=== PATIENT | male | born 1945 | race Caucasian/White ===

== ENCOUNTER → 2023-01-01 13:01 | Outpatient (BNVA) | payer MEDICARE, SELFPAY | PROVIDERS: Family Provider Family Medicine; Referring Provider Family Medicine; Visit Provider Dermatology | DX: L82.1 Other seborrheic keratosis (principal); L57.0 Actinic keratosis; L72.0 Epidermal cyst; L81.4 Other melanin hyperpigmentation | CPT/HCPCS: 17000; 17003; 99203 ==

== ENCOUNTER 2024-10-23 10:58 | Outpatient (CLI) | payer MEDICARE, SELFPAY ==
--- NOTE | 2024-10-23 11:08 | USCV_ITS ---
Too Joyner Age: 78 Gender: M : 1945 Exam Date: 10/23/2024 11:52 Ordering Phys: Peewee Dillon MD Technologist: Alexx Mera [place] [facility] [place]: hypotension BP: 110 / 70 HR: 55 Rhythm: Sinus Technical Quality: Adequate MEASUREMENTS (Male / Female) Normal Values 2D ECHO LV Diastolic Diameter PLAX 4.9 cm 4.2 - 5.9 / 3.9 - 5.3 cm IVS Diastolic Thickness 0.9 cm 0.6 - 1.0 / 0.6 - 0.9 cm IVS Systolic Thickness 1.0 cm LVPW Diastolic Thickness 1.5 cm 0.6 - 1.0 / 0.6 - 0.9 cm LVPW Systolic Thickness 2.2 cm LVOT Diameter 2.0 cm LV Ejection Fraction 2D Teich 30.7 % LV Ejection Fraction MOD 4C 47.3 % LV Ejection Fraction MOD 2C 40.1 % LV Ejection Fraction 2C AL 38.9 % LA Diameter 4.0 cm RA Systolic Volume 4C AL 30.6 ml RA Systolic Volume 4C MOD 29.7 ml LA Sys Volume AL 71.6 cm cubed LA Sys Volume Index AL 39.3 cm cubed/m squared Aorta at Sinotubular Diameter 2.2 cm IVC Diameter 1.5 cm M-MODE LA Ao Ratio MM 1.8 AV Cusp Separation MM 1.6 cm DOPPLER AV Peak Velocity 110.7 cm/s LVOT Peak Velocity 65.0 cm/s AV Area Cont Eq vti 2.3 cm squared AV Area Cont Eq pk 1.9 cm squared MV Peak Velocity 90.0 cm/s MV Area PHT 3.1 cm squared Mitral E to A Ratio 0.7 TV Peak Velocity 210.7 cm/s TR Peak Velocity 229.0 cm/s TR Peak Gradient 21.0 mmHg TR Mean Velocity 171.0 cm/s TR Mean Gradient 12.7 mmHg TR Velocity Time Integral 70.6 cm PV Peak Velocity 98.0 cm/s RV Ejection Time 0.3 s FINDINGS Left Ventricle Left ventricle is normal in size. LV systolic function is moderately reduced with EF of 35-40%. Moderate global hypokinesis. Grade 1 diastolic dysfunction Right Ventricle Grossly appears hypokinetic Right Atrium Normal in size Left Atrium Normal in size Mitral Valve Structurally normal mitral valve. Mild mitral regurgitation Aortic Valve Aortic valve is thickened. No significant stenosis or regurgitation Tricuspid Valve Insufficient TR jet to calculate RVSP Pulmonic Valve Mild pulmonic regurgitation. Pericardium Not well visualized Aorta Normal IVC Appears to be normal CONCLUSIONS LV systolic function is moderately reduced with EF of 35-40% RV appears grossly hypokinetic Grade 1 diastolic dysfunction Mild mitral regurgitation Mild pulmonic regurgitation No comparison studies are available. Theo Hauser MD (Electronically Signed) Final Date: 29 Oct 2024 10:37 S
== END 2024-10-23 10:59 | disposition home or self-care (01) ==
LOC: RAD 11:00
PROVIDERS: Family Provider Family Medicine; PCP Family Medicine; Visit Provider Internal Medicine Cardiovascular Disease
DX: E86.1 Hypovolemia (principal); R93.1 Abnormal findings on diagnostic imaging of heart and coronary circulation; I34.0 Nonrheumatic mitral (valve) insufficiency; I35.8 Other nonrheumatic aortic valve disorders; I37.1 Nonrheumatic pulmonary valve insufficiency
CPT/HCPCS: 93306

== ENCOUNTER 2024-12-07 23:07 | Inpatient (IN) | payer MEDICARE, SELFPAY ==
[2024-12-07 23:17] VITALS: BP 167/88; PULSE 95; RESP 16; TEMP 36.6; O2SAT 98; BMI 23.6
--- NOTE | 2024-12-07 23:48 | ECG_ITS ---
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 Measurements Intervals [place] Rate: 95 P: 72 VT: 195 QRS: -45 QRSD: 162 T: 87 QT: 383 QTc: 484 Interpretive Statements SINUS RHYTHM LEFT AXIS DEVIATION [QRS AXIS < -30] LEFT BUNDLE BRANCH BLOCK [120+ ms QRS DURATION, 80+ ms Q/S IN V1/V2, 85+ ms R IN I/aVL/V5/V6] No previous ECG available for comparison Electronically Signed On 12-10-2024 06:21:57 CDT by Marcello Blanco M.D. [email or web address]
--- NOTE | 2024-12-07 23:50 | ED_ITS ---
HPI - Chest Pain 2 General: Chief Complaint: Chest Pain Stated Complaint: Chest Pains Time Seen by Provider: 12/07/24 23:32 History of Present Illness: 79-year-old man with a history of don ry artery disease status post stents still on Plavix, hypertension and diabetes who presents to the emergency room with arm pain. He says he is having bilateral pain from his elbows to his shoulders. He says this is how he has presented with coronary issues in the past. Related Data Allergies Allergy/AdvReac Type Severity Reaction Status Date / Time No Known Allergies Allergy Verified 12/07/24 23:31 Review of Systems 2 Narrative: Constitutional symptoms: Negative except as documented in HPI. Skin symptoms: Negative except as documented in HPI. Eye symptoms: Negative except as documented in HPI. ENMT symptoms: Negative except as documented in HPI. Respiratory symptoms: Negative except as documented in HPI. Cardiovascular symptoms: Negative except as documented in HPI. Gastrointestinal symptoms: Negative except as documented in HPI. Genitourinary symptoms: Negative except as documented in HPI. Musculoskeletal symptoms: Negative except as documented in HPI. Neurologic symptoms: Negative except as documented in HPI. Psychiatric symptoms: Negative except as documented in HPI. Endocrine symptoms: Negative except as documented in HPI. Physical Exam 2 Narrative: EXAM NARRATIVE: General: Alert, no acute distress. Skin: Warm, dry. Head: Normocephalic, atraumatic. Neck: Supple, trachea midline. Eye: Extraocular movements are intact. Ears, nose, mouth and throat: mucosa moist. Cardiovascular: Regular, Normal peripheral perfusion. Respiratory: Lungs are clear to auscultation, respirations are non-labored, breath sounds are equal, Symmetrical chest wall expansion. Gastrointestinal: Soft, Nontender, Non distended Musculoskeletal: Normal ROM, no deformity. Neurological: Alert and oriented, No focal neurological deficit observed. Psychiatric: Cooperative, appropriate mood & affect. Course 2 Vital Signs: Vital signs: Vital Signs Temperature 97.9 F 12/07/24 23:17 Pulse Rate 92 12/08/24 00:25 Respiratory Rate 18 12/08/24 00:25 Blood Pressure 158/93 12/08/24 00:25 Pulse Oximetry 97 12/08/24 00:25 Oxygen Delivery Me thod Room Air 12/08/24 00:25 MDM - Chest Pain Medical Decision Making Differential diagnosis for patient with chest pain includes but is not limited to and based on the above HPI, review of systems and physical exam: Pneumonia. unstable angina. angina. Acute coronary syndrome / AR. Pulmonary embolism. Costochondritis / musculoskeletal. Pleurisy. Pericarditis. Esophageal spasm. Pancreatis. Cholecystitis. Orders placed to evaluate differential diagnosis based on the above differential, HPI and physical exam EKG: Time 194. Rate 89. Normal sinus rhythm, No ST-T changes, PVC, right bundle branch block, This was reviewed and interpreted by myself the ER physician at 1950. Lab Review: Laboratory results were reviewed and interpreted by myself the emergency room physician. No leukocytosis. No anemia. No renal failure. Glucose is elevated at 246. Initial troponin is slightly elevated at 20. proBNP is mildly elevated at 1046. I reviewed the patient's medical record. HEART Pathway for Early Discharge in Acute Chest Pain from [employer] on 12/08/2024 All calculations should be rechecked by clinician prior to use RESULT SUMMARY: 6 points HEART Pathway Score High risk 12-65% 30-day MACE Cardiology consultation and admission recommended. Further testing indicated. INPUTS: History ?> 1 = Moderately suspicious EKG ?> 0 = Normal Age ?> 2 = >=5 Risk factors ?> 2 = >= risk factors or history of atherosclerotic disease Initial troponin ?> 1 = 1-3x normal limit Reexamination: Patient says pain is much improved after nitroglycerin. Patient remained stable. No increased work of breathing. No altered mental status. No focal motor deficits. Consultation: I spoke with Dr. Lorenzo is on-call for the hospitalist service who agrees to admission Assessment and plan: Chest pain Coronary artery disease ?Nitro and aspirin in the emergency room -I discussed the patient with the hospitalist on-call who is admitting the patient. - Discussed findings and plan with patient. Answered any questions. - All laboratory values were reviewed and interpreted personally by myself, the ER physician - All imaging was reviewed and interpreted personally by myself, the ER physician. - Evaluation and treatment of this problem were appropriate in the emergency setting Lab Data 12/07/24 23:55 12/07/24 23:55 Laboratory Results WBC 9.58 10^3/uL (3.29-11.43) 12/07/24 23:55 RBC 5.36 10^6/uL (3.85-5.65) 12/07/24 23:55 Hgb 10.00 g/dL (11.27-16.99) L 12/07/24 23:55 Hct 32.3 % (37-53) L 12/07/24 23:55 MCV 60.3 fl (82-101) L 12/07/24 23:55 MCH 18.7 pg (27-33) L 12/07/24 23:55 MCHC 31.0 g/dL (30-55) 12/07/24 23:55 RDW 16.7 % (12.1-15.1) H 12/07/24 23:55 Plt Count 247 10^3/cmm (157-399) 12/07/24 23:55 MPV 9.4 fL (7.4-10.4) 12/07/24 23:55 Neut % (Auto) 72.1 % 12/07/24 23:55 Lymph % (Auto) 19.4 % 12/07/24 23:55 [place] % (Auto) 6.4 % 12/07/24 23:55 Eos % (Auto) 1.5 % 12/07/24 23:55 Baso % (Auto) 0.3 % 12/07/24 23:55 Neut # (Auto) 6.91 10^3/uL (1.8-7.7) 12/07/24 23:55 Lymph # (Auto) 1.9 10^3/uL (0.8-4.8) 12/07/24 23:55 [place] # (Auto) 0.6 10^3/uL (0.2-0.9) 12/07/24 23:55 Eos # (Auto) 0.1 10^3/uL (0.0-0.8) 12/07/24 23:55 Baso # (Auto) 0.0 10^3/uL (0.0-0.1) 12/07/24 23:55 Nucleated RBC % (auto) 0 % 12/07/24 23:55 Nucleated RBCs # 0.0 /100WBC 12/07/24 23:55 Sodium 139 mmol/L (136-145) 12/07/24 23:55 Potassium 4.1 mmol/L (3.5-5.1) 12/07/24 23:55 Chloride 105 mmol/L (98-107) 12/07/24 23:55 Carbon Dioxide 22 mmol/L (22-29) 12/07/24 23:55 Anion Gap 16.1 (5-19) 12/07/24 23:55 BUN 22 mg/dL (8-23) 12/07/24 23:55 Creatinine 0.8 mg/dL (0.7-1.2) 12/07/24 23:55 GFR Calculation Not Reportable 12/07/24 23:55 Glucose 246 mg/dL (65-115) H 12/07/24 23:55 Calculated Osmolality 300 mOsm/kg (285-295) H 12/07/24 23:55 Calcium 9.4 mg/dL (8.5-10.5) 12/07/24 23:55 Total Bilirubin 0.4 mg/dL (0.15-1.2) 12/07/24 23:55 AST 18 U/L (0-40) 12/07/24 23:55 ALT 13 U/L (0-41) 12/07/24 23:55 Alkaline Phosphatase 82 U/L (40-130) 12/07/24 23:55 Troponin T Baseline 20 ng/L (0-15) H 12/07/24 23:55 NT-Pro-B Natriuret Pep 1046 pg/mL (0-450) H 12/07/24 23:55 Total Protein 7.3 g/dL (6.6-8.7) 12/07/24 23:55 Albumin 4.5 g/dL (3.5-5.2) 12/07/24 23:55 Globulin 2.8 g/dL (1.3-4.6) 12/07/24 23:55 No radiology studies performed this visit Discharge Plan Discharge Patient Disposition: Placed in Observation Clinical Impression: Chest pain, Coronary artery disease Coding Level of Care Code ED Operational Communication Chief for Thanh Bee
[2024-12-08] VITALS (13 sets, daily range): BP systolic 125–158; BP diastolic 66–93; PULSE 73–92; RESP 14–23; TEMP 36.6–37.1; O2SAT 93–99; BMI 23.3
[2024-12-08 00:11] LABS: Basophils % 0.3 %; Eosinophils # 0.1 10^3/uL (0.0-0.8); Eosinophils % 1.5 %; Hematocrit 32.3 % (37-53); Lymphocytes # 1.9 10^3/uL (0.8-4.8); Lymphocytes % 19.4 %; Mean Corpuscular Hemoglobin 18.7 pg (27-33); Mean Corpuscular Volume 60.3 fl (82-101); Mean Platelet Volume 9.4 fL (7.4-10.4); Monocytes # 0.6 10^3/uL (0.2-0.9); Monocytes % 6.4 %; Neutrophils # 6.91 10^3/uL (1.8-7.7); Neutrophils % 72.1 %; Nucleated Red Blood Cells % 0 %; Platelet Count 247 10^3/cmm (157-399); Red Blood Count 5.36 10^6/uL (3.85-5.65); Red Cell Distribution Width 16.7 % (12.1-15.1); White Blood Count 9.58 10^3/uL (3.29-11.43)
[2024-12-08 00:33] LABS: Troponin(5th) Baseline 20 ng/L (0-15)
[2024-12-08 00:41] LABS: Alanine Aminotransferase 13 U/L (0-41); Albumin Level 4.5 g/dL (3.5-5.2); Alkaline Phosphatase 82 U/L (40-130); Anion Gap 16.1 (5-19); Aspartate Amino Transferase 18 U/L (0-40); Blood Urea Nitrogen 22 mg/dL (8-23); Calcium 9.4 mg/dL (8.5-10.5); Carbon Dioxide 22 mmol/L (22-29); Chloride 105 mmol/L (98-107); Creatinine Clr Calc Pharmacy 73.2453; Globulin 2.8 g/dL (1.3-4.6); Glucose 246 mg/dL (65-115); NT Pro B Type Natriuretic Pept 1046 pg/mL (0-450); Osmolality Calculated 300 mOsm/kg (285-295); Potassium 4.1 mmol/L (3.5-5.1); Sodium 139 mmol/L (136-145); Total Protein 7.3 g/dL (6.6-8.7)
[2024-12-08 00:55] LABS: Total Bilirubin 0.4 mg/dL (0.15-1.2)
[2024-12-08] MEDS: aspirin 81 mg Chew Tablet 324 MG PO (00:57)
[2024-12-08] MEDS: nitroglycerin 0.4 mg sublingual Tablet SUBLINGUAL (00:57)
--- NOTE | 2024-12-08 01:13 | XRR_ITS ---
PROCEDURE INFORMATION: Exam: XR Chest Exam date and time: 12/08/2024 1:19 AM Age: 79 years old Clinical indication: Pain; Chest pressure; Additional info: Chest pain TECHNIQUE: Imaging protocol: Radiologic exam of the chest. Views: 1 view. COMPARISON: No relevant prior studies available. FINDINGS: Lungs: Unremarkable. No consolidation. Pleural spaces: Unremarkable. No pleural effusion. No pneumothorax. Heart/Mediastinum: Unremarkable. No cardiomegaly. Bones/joints: Sternotomy. XR/XR chest 1V portable [id number] IMPRESSION: No acute cardiopulmonary process.
--- NOTE | 2024-12-08 01:48 | ECG_ITS ---
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 Measurements Intervals [place] Rate: 74 P: 67 DE: 210 QRS: -36 QRSD: 165 T: 131 QT: 454 QTc: 506 Interpretive Statements SINUS RHYTHM WITH FIRST DEGREE AV BLOCK LEFT AXIS DEVIATION [QRS AXIS < -30] LEFT BUNDLE BRANCH BLOCK [120+ ms QRS DURATION, 80+ ms Q/S IN V1/V2, 85+ ms R IN I/aVL/V5/V6] Compared to ECG 12/07/2024 23:24:55 First degree AV block now present Electronically Signed On 12-10-2024 08:20:53 CDT by Glory Handley M.D. [email or web address] [id number]
[2024-12-08 02:51] LABS: Troponin 5 2HR 105.1 ng/L (0-15); Troponin 5 2HR Delta 85.1 ABS# (0-10)
--- NOTE | 2024-12-08 03:53 | USCV_ITS ---
Too Joyner Age: 79 Gender: M : 1945 Exam Date: 12/08/2024 03:59 Ordering Phys: Chata Lorenzo MD Technologist: RUSSEL Exam Location: [facility] [place] Indication: chest pain, history CAD s/p stents, HTN DM, s/p CABG 2016 BP: 138 / 71 HR: 80 Rhythm: Atrial fibrillation Technical Quality: Adequate MEASUREMENTS (Male / Female) Normal Values 2D ECHO LV Diastolic Diameter PLAX 5.0 cm 4.2 - 5.9 / 3.9 - 5.3 cm IVS Diastolic Thickness 1.1 cm 0.6 - 1.0 / 0.6 - 0.9 cm IVS Systolic Thickness 1.4 cm LVPW Diastolic Thickness 0.9 cm 0.6 - 1.0 / 0.6 - 0.9 cm LVPW Systolic Thickness 1.1 cm LVOT Diameter 2.4 cm LV Ejection Fraction 2D Teich 25.4 % LV Ejection Fraction MOD 4C 29.0 % LV Ejection Fraction MOD 2C 37.8 % LV Ejection Fraction 2C AL 38.2 % LA Diameter 5.0 cm Aorta at Sinotubular Diameter 2.6 cm IVC Diameter 1.9 cm M-MODE LA Ao Ratio MM 1.9 AV Cusp Separation MM 1.5 cm DOPPLER AV Peak Velocity 94.0 cm/s LVOT Peak Velocity 55.0 cm/s AV Area Cont Eq vti 2.9 cm squared AV Area Cont Eq pk 2.7 cm squared MV Peak Velocity 96.0 cm/s MV Area PHT 6.6 cm squared Mitral E to A Ratio 619.0 TR Peak Velocity 320.0 cm/s TR Peak Gradient 41.0 mmHg TV Peak E Velocity 40.0 cm/s PV Peak Velocity 102.0 cm/s FINDINGS Left Ventricle Dyskinetic and thinned out mid and apical septum and other segments anteroseptal segments. Moderate diffuse hypokinesis of the inferolateral wall. Moderate diffuse hypokinesia of the apex.Grade III/IV diastolic dysfunction (restrictive filling pattern), severely elevated filling pressures. LV ejection fraction of 29%. Mildly dilated LV cavity Right Ventricle Appears to be normal size with slightly diminished ejection fraction Right Atrium The right atrium is normal in size. Left Atrium Moderately increased left atrial size. Mitral Valve Mild-moderate mitral valve regurgitation. Aortic Valve Thickened aortic valve. Tricuspid Valve Trace tricuspid valve regurgitation. Estimated pulmonary artery peak systolic pressure 51 mmHg Pulmonic Valve Mild pulmonary valve regurgitation. Pericardium Normal pericardium without effusion. Aorta Normal aortic annulus size. IVC Normal IVC dimension with <50% respiratory change of the inferior vena cava. CONCLUSIONS Multiple wall motion abnormalities with a diminished LV ejection fraction of 29%. Grade III/IV diastolic dysfunction (restrictive filling pattern), severely elevated filling pressures. Mildly dilated LV cavity. Moderately increased left atrial size. Thickened aortic valve. Trace tricuspid valve regurgitation. Estimated pulmonary artery peak systolic pressure 51 mmHg. Mild pulmonary valve regurgitation. There is no pericardial effusion. There are no intracardiac masses. No similar previous studies are available for comparison Dr Marcello Blanco MD FACC (Electronically Signed) Final Date: 08 December 2024 09:39 S
--- NOTE | 2024-12-08 03:57 | PM.HP ---
Providers/Chief Complaint Admitting Physician: Chata Lorenzo MD--seen after midnight Chief Complaint: Chest Pains History of Present Illness Too oJyner is a 79 year old male with medical history significant for coronary artery disease who had had angina equivalent and this was the reason for presentation to the emergency room. Patient have a left upper extremity ache into the shoulder. Patient had taken 2 nitro at home and it did not help. He decided to come to the emergency room for care. Initial troponin was 20. Patient's second troponin which is a 2-hour troponin went up to a 105 with a delta of 85.1. Patient's angina equivalent resolved soon after having received full aspirin in the ED. Patient takes baby aspirin at home.. Patient since arrival to the emergency room had not had any further chest pains. I have at this time started patient on heparin drip with cardiology protocol. Patient is not in distress and doing okay. Did place a call out to the template worker, Dr. Blanco but he went to the voicemail we will keep trying.. Patient at this time is in stable condition and have appropriate orders in place Review of Systems Narrative: Distant review upon 10 organ review with significant for cardiovascular process with chest pain angina equivalent. Otherwise system review where unremarkable Medications/Allergies Home Medications ?Medication ?Instructions ?Recorded ?Confirmed ?Last Taken ?Type aspirin 81 mg chewable tablet 81 mg PO DAILY 12/08/24 12/08/24 Unknown History carvedilol 12.5 mg tablet 12.5 mg PO DAILY 12/08/24 12/08/24 Unknown History carvedilol 6.25 mg tablet 6.25 mg PO BEDTIME 12/08/24 12/08/24 Unknown History clopidogrel 75 mg tablet 75 mg PO DAILY 12/08/24 12/08/24 Unknown History isosorbide mononitrate 30 mg 30 mg PO DAILY 12/08/24 12/08/24 Unknown History tablet,extended release 24 hr metformin 500 mg tablet,extended 500 mg PO BID 12/08/24 12/08/24 Unknown History release 24 hr nitroglycerin 0.4 mg sublingual 0.4 mg sublingual Q5M PRN Chest 12/08/24 12/08/24 Unknown History tablet Pain potassium 99 mg tablet 99 mg PO DAILY 12/08/24 12/08/24 Unknown History ranolazine 500 mg tablet,extended 500 mg PO BID 12/08/24 12/08/24 Unknown History release,12 hr simvastatin 20 mg tablet 20 mg PO DAILY 12/08/24 12/08/24 Unknown History ustekinumab 90 mg/mL subcutaneous See Rx Instructions .Route .COMPLEX 12/08/24 12/08/24 Unknown History syringe (Stelara) valsartan 40 mg tablet 20 mg PO DAILY 12/08/24 12/08/24 Unknown History Allergies Allergy/AdvReac Type Severity Reaction Status Date / Time No Known Allergies Allergy Verified 12/07/24 23:31 Vitals/I&O/Wt Last Vital Signs Temp 97.9 F 12/07/24 23:17 Pulse 75 12/08/24 02:56 Resp 17 12/08/24 02:30 BP 138/71 12/08/24 02:56 Pulse Ox 93 12/08/24 02:56 O2 Del Method Room Air 12/08/24 03:24 Weight last 48 hrs Weight 69.763 kg Weight 70.307 kg Physical Exam Narrative: Generally patient is doing well in no apparent distress. Denies chest pain at this time here in the emergency room. HEENT normocephalic/atraumatic neck neck is supple cardiovascular heart rate is regular lungs are clear abdomen soft nontender nondistended unremarkable extremities intact no edema has good pulses neurology has no focality lab studies lab studies as per below were entirely unremarkable except for troponins. By the status of troponin patient does have NSTEMI. Cardiology consulted is Dr. Blanco. Data 12/07/24 23:55 12/08/24 05:30 A&P Assessment and plan (1) NSTEMI (non-ST elevated myocardial infarction): Patient is on heparin drip and had received full aspirin. Appropriately placed on MedSurg with telemetry Patient kept n.p.o. after midnight for possible cardiac catheterization (2) Chest pain: Chest pain significant for NSTEMI Received full aspirin, heparin drip initiated with cardiology consultation with Dr. Blanco. Patient is in no apparent distress. Denies chest pains since arrival to the emergency room (3) Coronary artery disease: Patient does have CABG due to coronary artery disease patient claimed he had never had [place] or any had tissue damage but had had chest pains with discovery of CAD and underwent CABG PDMP PDMP Reviewed: Not Reviewed Attestations Medical Necessity Statement*: Patient with this level of troponin with angina equivalent chest pain and a history of coronary artery disease with CABG with this have likely cardiac catheterization for this reason patient meets inpatient criteria. Cardiology has been consulted to follow-up with care. Coding Level of Care Code 13703 Diagnoses NSTEMI (non-ST elevated myocardial infarction) I21.4 Chest pain R07.9 Coronary artery disease I25.10 Time Spent (min) 60
[2024-12-08] MEDS: sodium chloride 0.9% 1,000 ML 75 ML IV (05:04)
[2024-12-08 06:05] LABS: Alanine Aminotransferase 15 U/L (0-41); Albumin Level 4.3 g/dL (3.5-5.2); Alkaline Phosphatase 71 U/L (40-130); Anion Gap 14.3 (5-19); Aspartate Amino Transferase 57 U/L (0-40); Blood Urea Nitrogen 21 mg/dL (8-23); Calcium 9.2 mg/dL (8.5-10.5); Carbon Dioxide 23 mmol/L (22-29); Chloride 108 mmol/L (98-107); Chol HDL Ratio 2.94 mg/dL (1.0-5.00); Cholesterol 106 mg/dL (0-200); Creatinine Clr Calc Pharmacy 72.0923; Globulin 2.6 g/dL (1.3-4.6); Glucose 121 mg/dL (65-115); HDL Cholesterol 36 mg/dL (60-100); LDL Cholesterol Calculated 50 mg/dL (50-129); LDL HDL Ratio 1.39 RATIO (0.00-3.22); Osmolality Calculated 296 mOsm/kg (285-295); Phosphorus 2.9 mg/dL (2.5-4.5); Potassium 4.3 mmol/L (3.5-5.1); Sodium 141 mmol/L (136-145); Total Protein 6.9 g/dL (6.6-8.7); Triglycerides 99 mg/dL (0-150)
[2024-12-08] MEDS: heparin 5,000 unit/mL INJ 1 mL IVP (06:15)
[2024-12-08] MEDS: heparin drip 25,000 UNIT/500 ML PREMIX 20 UNIT IV (06:17)
[2024-12-08 06:33] LABS: Troponin 5 6HR 440.7 ng/L (0-15); Troponin 5 6HR Delta 420.7 ng/L (0-12)
--- NOTE | 2024-12-08 08:59 | PM.CONSULT ---
Providers/Reason For Consult Consulting Physician/Specialty*: MARINE Blanco MD/cardiology Reason for Consult*: Patient with chest pain and elevated troponin T Requesting Physician: Dr. Werner Attending Physician: Jamal Werner MD History of Present Illness History of Present Illness Too Joyner is a 79 year old male with a history of atherosclerotic heart disease ,previous coronary bypass surgery and PCI's, is admitted to the hospital through the emergency room where he presented with complaints of prolonged chest pain. He was found to have elevated troponin T with a significant delta. Cardiology consult is requested for further cardiac evaluation and recommendations. This patient has a history of atherosclerotic heart diseas and had a four-vessel coronary bypass surgery in 2017. 3 months later, he apparently had a PCI for? RCA graft occlusion. A year ago, he had another angiogram followed by PCI. The details are not available. Patient had these interventions at the [facility] in [facility]. According the patient, he has been doing okay up until last evening around 8:00 when he started having left arm pain. He had associated shortness of breath and some sweating. The intensity of the pain was 7/10. He took a total of 2 sublingual nitro. Since there was no relief of the symptoms, he decided to come to the hospital. He reached the emergency room around 1030. There he was given more sublingual nitro and aspirin. The symptoms gradually subsided. Altogether, the pain made her lasted for 4 hours or so. This morning, at the time of my examination, patient is pain-free. He came with a baseline troponin T of 20. The 2-hour delta was 85. The 6-hour delta is 420. He has a history of hypertension, diabetes, dyslipidemia and ulcerative colitis. He has history of GI bleed and had multiple hospital admissions for the same in the past. He has been taking the Plavix with no evidence of any active bleed. He also takes baby aspirin at home. Denies any fever, chills or cough. No other specific complaints. He had a MOSLEY to the LAD, venous To the RCA, diagonal and obtuse marginal arteries. Review of Systems Narrative: CONSTITUTIONAL: No fever or chills. EYES: No blurring of vision or other visual disturbances lately. ENT: No hoarseness of voice, auditory disturbances or sore throat. CARDIOVASCULAR: As mentioned above. RESPIRATORY: No significant cough. GASTROINTESTINAL: History of ulcerative colitis GENITOURINARY: No dysuria or hematuria. INTEGUMENTARY: No skin rashes or history of skin cancer. NEURO: No transient ischemic attacks or am aurosis. PSYCHIATRIC: No history of psychosis or major depression. HEMATOLOGIC: No bleeding disorders or significant anemia. ENDOCRINE: history of diabetes MUSCULOSKELETAL: No recent joint pain or swelling. ALLERGY/IMMUNOLOGY: As mentioned above. Medications/Allergies Home Medications ?Medication ?Instructions ?Recorded ?Confirmed ?Last Taken ?Type aspirin 81 mg chewable tablet 81 mg PO DAILY 12/08/24 12/08/24 Unknown History carvedilol 12.5 mg tablet 12.5 mg PO DAILY 12/08/24 12/08/24 Unknown History carvedilol 6.25 mg tablet 6.25 mg PO BEDTIME 12/08/24 12/08/24 Unknown History clopidogrel 75 mg tablet 75 mg PO DAILY 12/08/24 12/08/24 Unknown History isosorbide mononitrate 30 mg 30 mg PO DAILY 12/08/24 12/08/24 Unknown History tablet,extended release 24 hr metformin 500 mg tablet,extended 500 mg PO BID 12/08/24 12/08/24 Unknown History release 24 hr nitroglycerin 0.4 mg sublingual 0.4 mg sublingual Q5M PRN Chest 12/08/24 12/08/24 Unknown History tablet Pain potassium 99 mg tablet 99 mg PO DAILY 12/08/24 12/08/24 Unknown History ranolazine 500 mg tablet,extended 500 mg PO BID 12/08/24 12/08/24 Unknown History release,12 hr simvastatin 20 mg tablet 20 mg PO DAILY 12/08/24 12/08/24 Unknown History ustekinumab 90 mg/mL subcutaneous See Rx Instructions .Route .COMPLEX 12/08/24 12/08/24 Unknown History syringe (Stelara) valsartan 40 mg tablet 20 mg PO DAILY 12/08/24 12/08/24 Unknown History Allergies Allergy/AdvReac Type Severity Reaction Status Date / Time No Known Allergies Allergy Verified 12/07/24 23:31 Current Medications Generic Name Dose Route Start Last Admin Trade Name Freq PRN Reason Stop Dose Admin Sodium Chloride 1,000 mls @ 50 mls/hr 12/08/24 03:45 12/08/24 06:19 Sodium Chloride 0.9% IV 0 mls/hr .Q20H LAVON Infusion Heparin Sodium/Sodium Chloride 25,000 unit in 500 mls @ 0 mls/hr 12/08/24 05:30 12/08/24 06:17 Heparin Drip IV 14.33 unit/kg/hr CONT LAVON 20 mls/hr Protocol Administration Per Protocol Vitals/I&O/Wt Last Vital Signs Temp 98.2 F 12/08/24 07:35 Pulse 80 12/08/24 07:35 Resp 17 12/08/24 07:35 BP 147/81 12/08/24 07:35 Pulse Ox 95 12/08/24 07:35 O2 Del Method Room Air 12/08/24 07:35 12/07/24 12/08/24 12/08/24 22:59 06:59 14:59 Intake Total 93.75 / 93.75 Balance 93.75 / 93.75 Weight last 48 hrs Weight 149 lb Weight 153 lb 12.8 oz Weight 155 lb Physical Exam Narrative: GENERAL: The patient is alert and oriented times three. Not in any acute distress. HEENT: No significant pallor, icterus or lymphadenopathy.Oral cavity: There are no mucous membrane lesions. NECK: Trachea appears to be central. No masses noted. No JVD or thyromegaly appreciated. RESPIRATORY: Chest is symmetrical. No intercostals muscle retraction or any accessory muscle activation. There is no chest wall tenderness. Breath sounds are heard bilaterally. No rales or rhonchi heard. No evidence of any consolidation. BREASTS: Deferred. HEART: The heart sounds are normal. No S3 or S4. Short systolic murmur in the lower sternal border. No pericardial rub ABDOMEN: No vessel pulsations or distention. No tenderness. No organomegaly appreciated. Bowel sounds are normally heard. : Deferred. RECTAL: Deferred. LYMPHATIC: No lymphadenopathy noted in the neck. EXTREMITIES: No edema or cyanosis. No clubbing. The peripheral pulses are weak bilaterally-dorsalis pedis and posterior tibials MUSCULOSKELETAL: No acute joint deformities or swelling SKIN: There are no significant rashes or ecchymosis NEUROPSYCHIATRIC: The patient is alert and oriented x3. Appears to be in a good mood. No tremors or rigidity noted. Data 12/07/24 23:55 12/08/24 05:30 Other Labs: Laboratory Last Values WBC 9.58 10^3/uL (3.29-11.43) 12/07/24 23:55 RBC 5.36 10^6/uL (3.85-5.65) 12/07/24 23:55 Hgb 10.00 g/dL (11.27-16.99) L 12/07/24 23:55 Hct 32.3 % (37-53) L 12/07/24 23:55 MCV 60.3 fl (82-101) L 12/07/24 23:55 MCH 18.7 pg (27-33) L 12/07/24 23:55 MCHC 31.0 g/dL (30-55) 12/07/24 23:55 RDW 16.7 % (12.1-15.1) H 12/07/24 23:55 Plt Count 247 10^3/cmm (157-399) 12/07/24 23:55 MPV 9.4 fL (7.4-10.4) 12/07/24 23:55 Neut % (Auto) 72.1 % 12/07/24 23:55 Lymph % (Auto) 19.4 % 12/07/24 23:55 [place] % (Auto) 6.4 % 12/07/24 23:55 Eos % (Auto) 1.5 % 12/07/24 23:55 Baso % (Auto) 0.3 % 12/07/24 23:55 Neut # (Auto) 6.91 10^3/uL (1.8-7.7) 12/07/24 23:55 Lymph # (Auto) 1.9 10^3/uL (0.8-4.8) 12/07/24 23:55 [place] # (Auto) 0.6 10^3/uL (0.2-0.9) 12/07/24 23:55 Eos # (Auto) 0.1 10^3/uL (0.0-0.8) 12/07/24 23:55 Baso # (Auto) 0.0 10^3/uL (0.0-0.1) 12/07/24 23:55 Nucleated RBC % (auto) 0 % 12/07/24 23:55 Nucleated RBCs # 0.0 /100WBC 12/07/24 23:55 Sodium 141 mmol/L (136-145) 12/08/24 05:30 Potassium 4.3 mmol/L (3.5-5.1) 12/08/24 05:30 Chloride 108 mmol/L (98-107) H 12/08/24 05:30 Carbon Dioxide 23 mmol/L (22-29) 12/08/24 05:30 Anion Gap 14.3 (5-19) 12/08/24 05:30 BUN 21 mg/dL (8-23) 12/08/24 05:30 Creatinine 0.8 mg/dL (0.7-1.2) 12/08/24 05:30 GFR Calculation Not Reportable 12/08/24 05:30 Glucose 121 mg/dL (65-115) H 12/08/24 05:30 Calculated Osmolality 296 mOsm/kg (285-295) H 12/08/24 05:30 Calcium 9.2 mg/dL (8.5-10.5) 12/08/24 05:30 Phosphorus 2.9 mg/dL (2.5-4.5) 12/08/24 05:30 Magnesium 2.0 mg/dL (1.7-2.3) 12/08/24 05:30 Total Bilirubin 0.4 mg/dL (0.15-1.2) 12/07/24 23:55 AST 57 U/L (0-40) H 12/08/24 05:30 ALT 15 U/L (0-41) 12/08/24 05:30 Alkaline Phosphatase 71 U/L (40-130) 12/08/24 05:30 Troponin T Baseline 20 ng/L (0-15) H 12/07/24 23:55 Troponin T 120 Minute 105.1 ng/L (0-15) H 12/08/24 02:04 Delta Troponin T 85.1 ABS# (0-10) H* 12/08/24 02:04 Troponin T Hi Sens 6Hr 440.7 ng/L (0-15) H 12/08/24 05:30 Troponin T Hi Sens 6Hr Delta 420.7 ng/L (0-12) H* 12/08/24 05:30 NT-Pro-B Natriuret Pep 1046 pg/mL (0-450) H 12/07/24 23:55 Total Protein 6.9 g/dL (6.6-8.7) 12/08/24 05:30 Albumin 4.3 g/dL (3.5-5.2) 12/08/24 05:30 Globulin 2.6 g/dL (1.3-4.6) 12/08/24 05:30 Triglycerides 99 mg/dL (0-150) 12/08/24 05:30 Cholesterol 106 mg/dL (0-200) 12/08/24 05:30 LDL Cholesterol, Calc 50 mg/dL (50-129) 12/08/24 05:30 HDL Cholesterol 36 mg/dL (60-100) L 12/08/24 05:30 LDL/HDL Ratio 1.39 RATIO (0.00-3.22) 12/08/24 05:30 Cholesterol/HDL Ratio 2.94 mg/dL (1.0-5.00) 12/08/24 05:30 Other data: The EKG showed a sinus rhythm with left bundle branch block pattern. ST-T changes suggestive of lateral wall ischemia Echocardiogram from today Multiple wall motion abnormalities with a diminished LV ejection fraction of 29%. Grade III/IV diastolic dysfunction (restrictive filling pattern), severely elevated filling pressures. Mildly dilated LV cavity. Moderately increased left atrial size. Thickened aortic valve. Trace tricuspid valve regurgitation. Estimated pulmonary artery peak systolic pressure 51 mmHg. Mild pulmonary valve regurgitation. There is no pericardial effusion. There are no intracardiac masses. No similar previous studies are available for comparison A&P Assessment and plan (1) NSTEMI (non-ST elevated myocardial infarction): Patient's troponin T is trending upwards. Hemodynamically he seems to be stable. May continue on the heparin, Plavix and aspirin (2) Atherosclerotic heart disease of [place] coronary artery with unstable angina pectoris: This patient had a four-vessel coronary bypass surgery in 2017. He had a MOSLEY to LAD, venous graft to the RCA, diagonal and obtuse marginal arteries. Apparently he had occlusion of the venous graft to the RCA which was intervened? 3 months after the bypass. Details of the intervention a year ago is not available. (3) Ischemic cardiomyopathy: Patient has severe LV systolic dysfunction. The previous ejection fraction is not known at this point. He needs to be closely monitored for development of any heart failure. (4) Benign essential HTN: The blood pressure is slightly elevated. Need to optimize the antihypertensive medications. (5) T2DM (type 2 diabetes mellitus): May hold off on the metformin at this point. Need to be closely monitoring the blood sugar. (6) Dyslipidemia: May continue on the current medications. Plan In view of the patient's upward trending troponin T and severe LV systolic dysfunction with the previous coronary bypass surgery, it may be appropriate to go ahead with an early invasive approach. He requires a cardiac catheterization to further evaluate the coronary status as well as the graft status and decide on further management. This was discussed with the patient and his in detail with risks and benefits. The risk of bleeding, hematoma, vascular injury, myocardial infarction, myocardial perforation, malignant cardiac arrhythmias ,CVA, renal failure and other concomitant complications were explained in detail. Patient understood this well and consented to proceed. Thank you for the opportunity to evaluate this patient and make these recommendations My assessment and plan were discussed with Dr. Werner Because of the conflict with my schedule, I would ask my colleague Dr. Hauser to perform this procedure. This also was relayed to the patient. PDMP PDMP Reviewed: Not Reviewed Coding Level of Care Code 77028 Diagnoses NSTEMI (non-ST elevated myocardial infarction) I21.4 Atherosclerosis of [place] coronary artery of [place] heart with unstable angina pectoris I25.110 [place] vs. transplanted heart: [place] heart Ischemic cardiomyopathy I25.5 Benign essential HTN I10 Type 2 diabetes mellitus without complication, without long-term current use of insulin E11.9 Diabetes mellitus complication status: without complication Diabetes mellitus terminal makeup operator insulin use: without half-way use Dyslipidemia E78.5
[2024-12-08] MEDS: carvedilol 3.125 mg Tablet PO ×2 (09:00→18:38)
[2024-12-08] MEDS: pantoprazole 40 mg SDV IVP ×2 (09:00→21:01)
[2024-12-08] MEDS: sucralfate 1 gm/10 mL Oral Liq UDC PO ×2 (09:00→21:01)
[2024-12-08] MEDS: clopidogrel 75 mg Tablet PO (09:00)
[2024-12-08] MEDS: aspirin 81 mg EC Tablet PO (09:07)
[2024-12-08 09:17] LABS: Ferritin 346 ng/mL (30-400); Iron 38 ug/dL (59-158); Percent Saturation 14.2 % (20-50); Total Iron Binding Capacity 267 mcg/dl; Unsaturated Iron Binding 229 ug/dL (112-347)
[2024-12-08 09:38] LABS: Troponin T (5th) Once 530 ng/L (0-15)
--- NOTE | 2024-12-08 10:30 | PC.NURSE ---
patient left for landscape and yardwork laborer at 1030
--- NOTE | 2024-12-08 10:35 | W.PM.OPSUD ---
Surgery/Procedure H&P Update DATE OF PROCEDURE: December 08, 2024 DATE H&P PERFORMED: 12/08/24 H&P UPDATE INFORMATION: I have reviewed H&P completed within last 30 days, I have examined patient prior to procedure and No changes to prior documentation PREOP DIAGNOSIS: NSTEMI PRIMARY INDICATION FOR PROCEDURE: NSTEMI PLANNED PROCEDURE: Left heart cath with possible percutaneous coronary intervention PATIENT REASSESSED PRIOR TO SEDATION, WITH NO CHANGE NOTED: Yes PHYSICAL EXAM: alert, oriented x 3, clear to auscultation bilaterally and regular rate & rhythm AIRWAY EVAL/ANESTHESIA PLAN: normal airway, ASA III, Local Anesthesia, Risks, benefits & alternatives of sedation and/or procedure discussed and Patient agrees to continue as planned ADDITIONAL INFORMATION: Moderate sedation
--- OUTSIDE RECORDS SUMMARY | 2024-12-08 10:53 | XMS_ITS | Clinical Summary ---
Author Organization [facility] First Address [address] [place] [address] Care Team Providers Care Dietary Service Aide Name Role Phone Melanie Garza MD Primary Care Provider [phone]- [phone] Allergies No known active allergies Medications valsartan (DIOVAN) 40 mg tablet Take 1 Tablet by mouth daily. 4 Active carvediloL (COREG) 12.5 mg tablet Take 12.5 mg by mouth 2 times daily. 4 Active simvastatin (ZOCOR) 20 mg tablet Take 20 mg by mouth daily at bedtime. 4 Active ranolazine ER (RANEXA) 500 mg Extended Release 12 hour tablet Take 1 Tablet by mouth 2 times daily. 4 Active clopidogreL (PLAVIX) 75 mg Tablet Take 1 Tablet by mouth daily. 4 Active nitroglycerin (NITROSTAT) 0.4 mg Tablet, Sublingual Place 0.4 mg under tongue. 4 Active aspirin (ECOTRIN EC) 81 mg Tablet, Delayed Release (E.C.) Take 81 mg by mouth daily. Active POTASSIUM CHLORIDE ORAL Take 99 mcg by mouth. Active Stelara 90 mg/mL Syringe Inject 90 mg by subcutaneous injection. 4 Active metFORMIN (GLUCOPHAGE XR) 500 mg Extended Release 24 hour tablet Take 1 Tablet (500 mg) by mouth 2 times daily. 4 Active isosorbide mononitrate (IMDUR) 30 mg Extended Release 24 hour tablet Take 1 Tablet by mouth daily in the morning. Active Active Problems Patient Care Coordination No te Formatting of this note migh t be different from the original. Radiotelegrapher-Dr Peewee Dillon [place] Problem Noted Date Diagnosed Date Mixed hyperlipidemia 11/02/2024 Left bundle branch block 11/02/2024 S/P coronary artery stent placement 10/08/2023 Overview (10/08/2023): 10/08/23 STUART x 1 LAD, Dr. Dillon W. Status post four vessel coronary artery bypass 0 10/03/2023 Essential hypertension 10/03/2023 Encounters Date Type Department Care Team Description 12/08/2024 Telephone [facility] - [address] [place] [address] Peewee Dillon MD Chest Pain 11/17/2024 External Device Data [facility] ABSTRACTION Provider, Abstract 11/12/2024 External Device Data [facility] ABSTRACTION Provider, Abstract 11/10/2024 External Device Data [facility] ABSTRACTION Provider, Abstract 11/02/2024 1:30 PM CDT Office Visit [facility] - [address] [place] [address] Peewee Dillon MD Essential hypertension (Primary Dx); Status post four vessel coronary artery bypass; Mixed hyperlipidemia; Left bundle branch block; Hypotension due to hypovolemia 10/27/2024 External Device Data [facility] ABSTRACTION Provider, Abstract 10/15/2024 Telephone [facility] - [address] [place] [address] Peewee Dillon MD Low Blood Pressure; Needs Orders Written 09/09/2024 External Device Data [facility] ABSTRACTION Provider, Abstract from Last 3 Months Family History Relation Name Status Comments Father Mother Social History Tobacco Use Types Packs/Day Years Used Date Smoking Tobacco: Never Smokeless Tobacco: Never Tobacco Cessation:Counseling Given: Not Answered Alcohol Use Standard Drinks/Week Comments Not Currently 0 (1 standard drink = 0.6 oz pur e alcohol) Feeling Safe Answer Date Recorded Are you in a relationship wi th someone who hurts you emotionally and/or physically? No 10/08/2023 Food Insecurity Answer Date Recorded Social/Environmental Concerns No concerns Transportation Needs Answer Date Record ed Social/Environmental Concerns No concerns Housing Stability Answer Date Recorded Social/Environmental Concerns No concerns Utility Needs Answer Date Recorded Social/Environmental Concerns No concerns Sex and Gender Information Value Date Recorded Sex Assigned at Not on file Legal Sex Male 3:51 PM CDT Gender Identity Not on file Sexual Orientation Not on file Last Filed Vital Signs Vital Sign Reading Time Taken Comments Blood Pressure 138/70 11/02/2024 1:05 PM CDT Pulse 61 11/02/2024 1:05 PM CDT Temperature 36.3 C (97.4 F) 10/08/2023 9:13 AM CDT Respiratory Rate 15 11/02/2024 1:05 PM CDT Oxygen Saturation 99% 10/31/2023 2:19 PM CDT Inhaled Oxygen Concentration - - Weight 66.7 kg (147 lb) 11/02/2024 1:05 PM CDT Height 172.7 cm (5' 8 ) 11/02/2024 1:05 PM CDT Body Mass Index 22.35 11/02/2024 1:05 PM CDT Plan of Treatment Upcoming Encounters Date Type Department Care Team (Late st Contact Info) Description 11/18/2025 12:45 PM CDT Office Visit [facility] - [address] [place] [id number] Peewee Dillon MD [address] [place] [id number] Health Maintenance Due Date Last Done Comments DIABETES ANNUAL FOOT EXAM 11/25/1963 DIABETES ANNUAL RETINAL EXAM 11/25/1963 DIABETES HBA1C Q 6 MONTHS 11/25/1963 DIABETES MICROALBUMIN ANNUAL SCREEN 11/25/1963 LDL CHOLESTEROL ANNUAL 11/25/1963 ZOSTER VACCINE (1 of 2) 11/25/1995 PNEUMOCOCCAL VACCINE 50+ YEA RS (2 of 2 - PPSV23) 08/08/2016 06/13/2016 RSV VACCINE (60+ or ) (1 - 1-dose 75+ series) 2020 DTAP/TDAP/TD VACCINES (2 - T d or Tdap) 12/05/2020 12/05/2010, 12/05/2010, 10/26/1999 INFLUENZA VACCINE (#1) 2024 , 03/30/2022, 03/27/2021, Additional history exists COVID-19 Vaccine (2023-2 5 season) 2024 03/27/2021, 08/29/2020, 08/19/2020, Additional history exists [place] Preventative Visit/Annual Wellness Visit 06/24/2024 Medical Devices Implanted Type Area Bee Keeper Device Identifier Shelf Expiration Date Model / Serial / Lot Dev Closure Angioseal 6fr Vip [id number] - [id number] Implanted:Qty: 1 on 10/08/2023 by Peewee Dillon MD at [facility] Closure Device Right: Groin [employer] 05/09/2024 [id number] / / [id number] Stent Xience Skypoint [id number] Evrlms Elut [id number] - [id number] Implanted:Qty: 1 on 10/08/2023 at [facility] Stent Left: Coronary SEV[employer]A- VASC DEVICE 01/10/2026 [id number] / / [id number] Procedures Procedure Name Priority Date/Time Associated Diagnosis Comments CBC WITH DIFFERENTIAL Routine 11/02/2024 2:53 PM CDT Hypotension due to hypovolemia BASIC METABOLIC PANEL Routine 11/02/2024 2:53 PM CDT Hypotension due to hypovolemia NC ECG ROUTINE ECG W/LEAST 12 LDS W/I&R Routine 11/02/2024 1:30 PM CDT Status post four vessel coronary artery bypass Left bundle branch block ECHO COMPLETE Routine 10/23/2024 Hypotension due to hypovolemia from Last 3 Months Results * CBC WITH DIFFERENTIAL (11/02/2024 2:53 PM CDT) Blood 11/02/2024 2:53 PM CDT Peewee Dillon MD HEMATOLOGY ORDERABLES Alis l Result NON [employer] [facility] * BASIC METABOLIC PANEL (11/02/2024 2:53 PM CDT) Blood 11/02/2024 2:53 PM CDT Peewee Dillon MD CHEMISTRY ORDERABLES Final Result Performing Organization Address [facility] Co de Phone Number NON [employer] [facility] * NC ECG ROUTINE ECG W/LEAST 12 LDS W/I&R (11/02/2024 1:30 PM CDT) Narrative [facility] [address] - 11/02/2024 1:30 PM CDT Peewee Dillon MD 11/02/2024 1:35 PM EKG Date/Time: 11/02/2024 1:30 PM Performed by: Peewee Dillon MD Authorized by: Peewee Dillon MD Rhythm: sinus rhythm Rate: normal Conduction: left bundle branch block Comments: LBBB QRS 162, rate 61, QTC 471 Procedure Note Peewee Dillon MD - 11/02/2024 1:11 PM CDT Cardiology Clinic Note Chief Complaint: Chief Complaint Patient presents with Heart Problem Yearly Hx of CAD s/p PCI, CABG x4 Pt had echo at [place] last week. Hypertension Medication Review Wants to address BP meds and imdur dose SUBJECTIVE: This is a 78 y.o. male with a history as below here forfollow-up. He is still doing great since stent last September No chest pain or sob. Imdur in am, wears off around 5p and has no energy ; at that time bpwould be very low. Bp 101/55 No edema or claudication, no syncope No bruising or bleeding Avoids salty foods Cardiac history/tests: CAD: CABG 2017 Stents 2016 Cath 09/2023 occluded vein graft to OM1 and vein graft to diagonal, patentLIMA to LAD and patent vein graft to right PDA. Underwent angioplasty ofthe proximal circumflex which was reportedly small. Also underwentangioplasty of the LAD distal to the MOSLEY anastomosis, no stents wereplaced. PCI 09/2023 LAD through the MOSLEY mid LAD with a 2.25 x 23 mm Xience 2. Hypertension 3. diabetes mellitus Echo at [facility] dated 10/23/2024 EF 35-40, hypokinesis of the RV,mild mitral regurgitation. Lives in [facility] Current meds Current Outpatient Medications Medication Sig Dispense Refill isosorbide mononitrate (IMDUR) 30 mg Extended Release 24 hour tablet Take1 Tablet by mouth daily in the morning. metFORMIN (GLUCOPHAGE XR) 500 mg Extended Release 24 hour tablet Take 1Tablet (500 mg) by mouth 2 times daily. valsartan (DIOVAN) 40 mg tablet Take 1 Tablet by mouth daily. carvediloL (COREG) 12.5 mg tablet Take 12.5 mg by mouth 2 times daily. chlorthalidone (HYGROTON) 25 mg tablet Take 12.5 mg by mouth daily. simvastatin (ZOCOR) 20 mg tablet Take 20 mg by mouth daily at bedtime. ranolazine ER (RANEXA) 500 mg Extended Release 12 hour tablet Take 1Tablet by mouth 2 times daily. clopidogreL (PLAVIX) 75 mg Tablet Take 1 Tablet by mouth daily. nitroglycerin (NITROSTAT) 0.4 mg Tablet, Sublingual Place 0.4 mg undertongue. aspirin (ECOTRIN EC) 81 mg Tablet, Delayed Release (E.C.) Take 81 mg bymouth daily. POTASSIUM CHLORIDE ORAL Take 99 mcg by mouth. Stelara 90 mg/mL Syringe Inject 90 mg by subcutaneous injection. No current facility-administered medications for this visit. Primary Care Physician Melanie Garza MD Past Medical History Past Medical History: Diagnosis Date Coronary artery disease Diabetes mellitus (CMS/HCC) Hypertension Past Surgical History Past Surgical History: Procedure Laterality Date HX CORONARY ARTERY BYPASS GRAFT HX HERNIA REPAIR 2011 Social History Social History Tobacco Use Smoking status: Never Smokeless tobacco: Never Substance Use Topics Alcohol use: Not Currently Family History No family history on file. Allergies No Known Allergies Review of Systems-- 12 point review of systems reviewed and are negativeunless otherwise stated in the HPI. OBJECTIVE: BP 138/70 Pulse 61 Resp 15 Ht 5' 8 (1.727 m) Wt 66.7 kg (147lb) BMI 22.35 kg/m General: alert, cooperative, no distress Neck: supple, JVP normal, no bruit Lungs: clear to auscultation bilaterally with normal thoracic expansion Heart: RRR no murmur Abdomen: soft, bowel sounds normal, non-tender, no palpableorganomegaly Extremities: no cyanosis/clubbing, no edema and pulses palpable Skin: no rash noted Neurologic: grossly nonfocal, alert and oriented and interactive Psych: Mood and affect normal No results found for: CHOLTOT , HDL , LDLCALC , LDLDIRECT , TRIGLYCERIDE Lab Results Component Value Date/Time NA 138 10/03/2023 02:21 PM K 3.4 (L) 10/03/2023 02:21 PM CL 100 10/03/2023 02:21 PM CO2 28 10/03/2023 02:21 PM CA 10.2 10/03/2023 02:21 PM BUN 22 10/03/2023 02:21 PM CREAT 0.89 10/03/2023 02:21 PM GLUCOSE 205 (H) 10/03/2023 02:21 PM BCRATIO SEE NOTE: 10/03/2023 02:21 PM EKG Date/Time: 11/02/2024 1:30 PM Performed by: Peewee Dillon MD Authorized by: Peewee Dillon MD Rhythm: sinus rhythm Rate: normal Conduction: left bundle branch block Comments: LBBB QRS 162, rate 61, QTC 471 IMPRESSION/PLAN: 1. Essential hypertension (Primary) He is experiencing pharmaceutically induced hypotensive spells in theafternoon. I would like his Coreg to be split more evenly in other wordsaround 12 hours apart. Therefore, we will plan to go back to Coreg in themorning and Coreg in the evening but will stop chlorthalidone. He wouldlike to try splitting I am there half in the morning half in theafternoon, this will be fine as well. If he still experiences low blood pressure in the afternoon, will trytaking half of a Coreg in the morning only. Also if he is not feeling aswell as he did when taking a full dose of Imdur in the morning, willconsider Imdur 30 mg in the morning and 15 mg in the afternoon. He will call if he is not feeling well on the plan as outlined. 2. Status post four vessel coronary artery bypass Also with stent to the LAD, 2.25mm, just over a year ago. Since it is asmall diameter stent, I will keep him on dual antiplatelet therapy fornow. He has had no issues with bleeding or bruising at all. 3. Mixed hyperlipidemia I do not have his most recent lipid panel. He does eat low-fat diet.Avoid saturated fats. Continue Zocor 20 mg daily. He had an echocardiogram at an outside facility and I cannot find theresults, he does not have them. He does not know the results. He statesthat for now on if he needs to have an echocardiogram or other test donehe will have them done at [facility]. Valdo Dillon MD us Peewee Dillon MD ECG ORDERABLES Edited Res ult - Final [facility] [address] FRIEDMAN# [id number] [address] [place] [address] [place] [address] * ECHO COMPLETE - CONTRAST AND STRAIN IF INDICATED (10/23/2024) us Peewee Dillon MD US ORDERABLES Final Resu lt NON [facility] from Last [address] [place] [id number] [employer] PLUS [facility] Advance Directives For more information, please contact: [phone] * Full Code (Latest Code Status on File) Date Activated Date Inactivated Comments 10/08/2023 9:10 AM 10/08/2023 5:44 PM Care Teams Dietary Service Aide Relationship Specialty Start Date End Date Melanie Garza MD [address] [place] [address] PCP - General Family Practice 10/03/23
--- OUTSIDE RECORDS SUMMARY | 2024-12-08 10:53 | XMS_ITS | Encounter Summary ---
Author Organization [facility] Address [address] [place] [address] Care Team Providers Care Business Librarian Name Role Phone Melanie Garza MD Primary Care Provider +1- [phone] Reason for Visit * Reason Onset Date Comments Chest Pain 12/08/2024 Encounter Details Date Type Department Care Team (Late st Contact Info) Description 12/08/2024 Telephone [facility] V[facility] - [address] [place] [address] Peewee Dillon MD [address] [place] [address] Chest Pain Social History Tobacco Use Types Packs/Day Years Used Date Smoking Tobacco: Never Smokeless Tobacco: Never Alcohol Use Standard Drinks/Week Comments Not Currently [...] on file Sexual Orientation Not on file documented as of this encounter Miscellaneous Notes * Telephone Encounter - Olga Arteaga RN - 12/08/2024 8:57 AM CDT FYI, will forward to Dr Dillon * Telephone Encounter - Unique Kaplan LPN - 12/08/2024 8:32 AM CDT TC from pt , Amie. States pt suffered WA last pm and is currently at [facility]. They are planning on cath/angiogram today. May reach Amie on her cell [phone]. documented in this encounter Plan of Treatment Upcoming Encounters Date Type Department Care Team (Late st Contact Info) Description 11/18/2025 12:45 PM CDT Office Visit [facility] - [address] [place] [address] Peewee Dillon MD [address] [place] [address] documented as of this encounter Visit Diagnoses Not on filedocumented in this encounter Care Teams Business Librarian Relationship Specialty Start Date End Date Melanie Garza MD [address] [place] [address] PCP - General Family Practice 10/03/23 documented as of this encounter
[2024-12-08 11:39] LABS: Total Bilirubin 0.4 mg/dL (0.15-1.2)
--- NOTE | 2024-12-08 12:37 | P.PCN_ITS ---
Procedure Note: Date of procedure: 12/08/24 Pre-procedure diagnosis: NSTEMI Post-procedure diagnosis: other (Severe multivessel coronary artery disease) Procedure: Left main is patent. Ostial left circumflex artery to OM with critical 95% stenosis. Proximal LAD into diagonal artery has critical. Mid LAD is totally occluded. RCA has total chronic occlusion. MOSLEY to LAD is patent however post anastomosis there is a prior stent which is totally occluded. SVG to RCA has distal 70 to 80% stenosis. SVG to diagonal artery is 100% occluded. SVG to circumflex artery is totally occluded Status post successful revascularization of the prairie band ostial circumflex artery to OM with 1 stent. Status post successful revascularization of proximal LAD into diagonal artery with 1 stent Dual antiplatelet therapy with aspirin and plavix Stating therapy Staged PCI of SVG to RCA in 3-4 weeks Performing Provider: Theo Hauser Estimated blood loss (mL): 10 Complications: None Condition: stable Disposition: floor Coding Level of Care Code Acute Code for Chg Cristal
--- NOTE | 2024-12-08 13:24 | P.PN_ITS ---
Subjective 2 Subjective: Patient was seen this morning, he sitting up to side of the bed, alert oriented x 3, following all commands, no chest pain this morning but he was having chest pain what brought him in, radiating down his right arm, no shortness of breath, Dr. Blanco is also at bedside, plans on coronary angiography urgently this morning, orders placed to move patient down to cardiac stepdown unit, discussed with patient, risk and benefits of coronary angiography, he agrees to proceed, patient again seen in [facility], no active chest pain, discussed plans of Dr. Hauser doing coronary angiography this morning patient and voiced understanding, all questions answered Vitals/I&O/Wt Last Vital Signs Temp 97.8 F 12/08/24 12:00 Pulse 83 12/08/24 12:00 Resp 19 H 12/08/24 12:00 BP 143/85 12/08/24 12:00 Pulse Ox 95 12/08/24 12:00 O2 Del Method Room Air 12/08/24 07:35 12/07/24 12/08/24 12/08/24 22:59 06:59 14:59 Intake Total 93.75 / 93.75 0 / 0 Balance 93.75 / 93.75 0 / 0 Weight last 48 hrs Weight 67.585 kg Weight 69.763 kg Weight 70.307 kg Physical Exam 2 Const: COMMON NORMALS: no acute distress and patient oriented x3 Resp: COMMON NORMALS: normal respiratory effort, No retractions, No use of accessory muscles and clear to auscultation bilaterally AUSCULTATION: clear to auscultation bilaterally Cardio: COMMON NORMALS: regular rate, regular rhythm, S1 normal heart sound present and S2 normal heart sound present RATE: regular rate RHYTHM: r egular rhythm HEART SOUNDS: S1 normal heart sound present and S2 normal heart sound present GI: COMMON NORMALS: Normal to inspection, nondistended, normoactive bowel sounds present and non-tender Extremity: COMMON NORMALS: no pedal edema Neuro: COMMON NORMALS: patient oriented x3, CN's II-XII intact bilaterally and moves all extremities Psych: COMMON NORMALS: mental status grossly normal Data 12/07/24 23:55 12/08/24 05:30 A&P Assessment and plan (1) NSTEMI (non-ST elevated myocardial infarction): (2) Chest pain: (3) Coronary artery disease: (4) Anemia: Plan Chest pain, NSTEMI - Troponin 530, delta 420.6 Cardiac echo CONCLUSIONS Multiple wall motion abnormalities with a diminished LV ejection fraction of 29%. Grade III/IV diastolic dysfunction (restrictive filling pattern), severely elevated filling pressures. Mildly dilated LV cavity. Moderately increased left atrial size. Thickened aortic valve. Trace tricuspid valve regurgitation. Estimated pulmonary artery peak systolic pressure 51 mmHg. Mild pulmonary valve regurgitation. There is no pericardial effusion. There are no intracardiac masses. No similar previous studies are available for comparison Plan -Aspirin, statin, Coreg, Plavix -Heparin drip -N.p.o., cardiology consulted for cardiac cath Type 2 diabetes, low-dose sliding scale Acute anemia with evidence of iron deficiency anemia, will order iron studies, Protonix, Carafate Full code Lovenox for DVT prophylaxis PDMP PDMP Reviewed: Not Reviewed Attestations 2 Medical Necessity Statement*: Patient requires hospitalization for NSTEMI, chest pain Diagnoses NSTEMI (non-ST elevated myocardial infarction) I21.4 Chest pain R07.9 Coronary artery disease I25.10 Anemia D64.9
[2024-12-08 14:06] LABS: Estmated Average Glucose 134; Hemoglobin A1C 6.3 % (4.0-6.0)
[2024-12-08 15:25] LABS: Partial Thromboplastin Time 75.9 SECONDS (23.9-36.7)
[2024-12-08 17:21] LABS: Glucose Point of Care 171 mg/dL (70-110)
[2024-12-08 17:56] LABS: Partial Thromboplastin Time 35.9 SECONDS (23.9-36.7)
--- NOTE | 2024-12-08 18:13 | PC.NURSE ---
sheath pulled at 545pm. Pressure held for 20 min. No hematoma noted. Pressure dressing applied and sandbag placed on site to prevent oozing.
[2024-12-08] MEDS: insulin lispro 100 unit/1 mL SUBCUT (18:41)
[2024-12-08 20:15] LABS: Glucose Point of Care 133 mg/dL (70-110)
[2024-12-08] MEDS: atorvastatin 40 mg Tablet 80 MG PO (21:01)
[2024-12-09] VITALS (7 sets, daily range): BP systolic 105–133; BP diastolic 47–68; PULSE 67–75; RESP 15–25; TEMP 36.7–37.3; O2SAT 97–98
[2024-12-09 04:36] LABS: Basophils % 0.2 %; Eosinophils # 0.1 10^3/uL (0.0-0.8); Eosinophils % 0.7 %; Hematocrit 30.8 % (37-53); Lymphocytes # 1.7 10^3/uL (0.8-4.8); Lymphocytes % 19.7 %; Mean Corpuscular HGB Conc 30.8 g/dL (30-55); Mean Corpuscular Hemoglobin 18.8 pg (27-33); Mean Corpuscular Volume 61.1 fl (82-101); Mean Platelet Volume 9.5 fL (7.4-10.4); Monocytes # 0.9 10^3/uL (0.2-0.9); Monocytes % 11.2 %; Neutrophils # 5.69 10^3/uL (1.8-7.7); Nucleated Red Blood Cells % 0 %; Platelet Count 211 10^3/cmm (157-399); Red Blood Count 5.04 10^6/uL (3.85-5.65); Red Cell Distribution Width 16.8 % (12.1-15.1); White Blood Count 8.38 10^3/uL (3.29-11.43)
[2024-12-09] MEDS: fixodent 39 gm Tube 1 APPLIC DENTAL (04:37)
[2024-12-09 05:00] LABS: Anion Gap 13.7 (5-19); Blood Urea Nitrogen 15 mg/dL (8-23); Calcium 8.9 mg/dL (8.5-10.5); Carbon Dioxide 23 mmol/L (22-29); Chloride 104 mmol/L (98-107); Glucose 148 mg/dL (65-115); Osmolality Calculated 288 mOsm/kg (285-295); Potassium 3.7 mmol/L (3.5-5.1); Sodium 137 mmol/L (136-145)
[2024-12-09 06:06] LABS: Glucose Point of Care 164 mg/dL (70-110)
--- NOTE | 2024-12-09 07:35 | PC.SOCIAL ---
IMM Update pg 2 of IMM Updated and reviewed w/ patient. Copy provided and copy dated, initialed and placed in chart.
--- NOTE | 2024-12-09 09:14 | P.PN_ITS ---
Subjective 2 Subjective: Patient under the cardiac organization yesterday. He was found to have high- grade lesion on the first obtuse marginal and first diagonal arteries. The venous graft to the OM and the diagonal were found to be occluded. MOSLEY to the LAD was found to be patent. There was a high-grade lesion in the venous graft to the RCA. He underwent a PCI of the diagonal and the obtuse marginal arteries. Planning for a staged procedure for the RCA graft. Denies any chest pain or chest tightness. No unusual shortness of breath. Medications: Medication Review Details: Current Medications Acetaminophen (Acetaminophen 325 Mg Tablet) 650 mg PO Q6H PRN PRN Reason: Mild/Mod Pain Or Temp >/= 101 Aspirin (Aspirin 81 Mg Ec Tablet) 81 mg PO DAILY [facility] Last Admin: 12/08/24 09:07 Dose: 81 mg Atorvastatin Calcium (Atorvastatin 40 Mg Tablet) 80 mg PO BEDTIME [facility] Last Admin: 12/08/24 21:01 Dose: 80 mg Carvedilol (Carvedilol 3.125 Mg Tablet) 3.125 mg PO BID [facility] Last Admin: 12/08/24 18:38 Dose: 3.125 mg Clopidogrel Bisulfate (Clopidogrel 75 Mg Tablet) 75 mg PO DAILY [facility] Last Admin: 12/08/24 09:00 Dose: 75 mg Denture Adhesive (Fixodent 39 Gm Tube) 1 applic DENTAL PRN PRN PRN Reason: denture adhesive Last Admin: 12/09/24 04:37 Dose: 1 applic Docusate Sodium (Docusate Sodium 100 Mg Capsule) 100 mg PO BID [facility] Last Admin: 12/08/24 18:41 Dose: Not Given Enoxaparin Sodium (Enoxaparin 40 Mg/0.4 Ml Syringe) 40 mg SUBCUT Q24H [facility] Last Admin: 12/08/24 23:33 Dose: Not Given Glucagon (Glucagon 1 Mg/Ml Kit 1 Ml) 1 mg IM ONCE PRN; Protocol PRN Reason: Adult Acute Hypoglycemia Nursing Prot. Dextrose (D5w) 500 mls @ 0 mls/hr IV ONCE PRN; Protocol PRN Reason: Adult Acute Hypoglycemia Prot Dextrose (D10w) 125 mls @ 750 mls/hr IV PRN PRN; Protocol PRN Reason: Adult Acute Hypoglycemia Nursing Protocol Dextrose (D10w) 250 mls @ 1,000 mls/hr IV PRN PRN; Protocol PRN Reason: Adult Acute Hypoglycemia Nursing Protocol Insulin Human Lispro (Insulin Lispro 100 Unit/1 Ml) 0 unit SUBCUT TIDWM [facility]; Protocol Last Admin: 12/08/24 18:41 Dose: 2 unit Morphine Sulfate (Morphine 4 Mg/Ml Sdv 1 Ml) 2 mg IVP Q4H PRN PRN Reason: SEVERE PAIN Ondansetron HCl (Ondansetron 2 Mg/Ml Sdv 2 Ml) 4 mg IVP Q8H PRN PRN Reason: vomiting, or N/V if npo Pantoprazole Sodium (Pantoprazole 40 Mg Sdv) 40 mg IVP Q12H [facility] Last Admin: 12/08/24 21:01 Dose: 40 mg Senna (Sennosides 8.6 Mg Tablet) 17.2 mg PO BEDTIME [facility] Last Admin: 12/08/24 21:01 Dose: Not Given Sucralfate (Sucralfate 1 Gm/10 Ml Oral Liq Udc) 1 gm PO Q12H [facility] Last Admin: 12/08/24 21:01 Dose: 1 gm Vitals/I&O/Wt Last Vital Signs Temp 98.9 F 12/09/24 07:15 Pulse 67 12/09/24 07:15 Resp 22 H 12/09/24 07:15 BP 124/59 12/09/24 07:15 Pulse Ox 97 12/09/24 07:15 O2 Del Method Room Air 12/09/24 07:15 12/08/24 12/09/24 12/09/24 22:59 06:59 14:59 Intake Total 780.583 / 1020.583 680 / 1700.583 240 / 240 Output Total 100 / 100 Balance 680.583 / 920.583 680 / 1600.583 240 / 240 Weight last 48 hrs Weight 151 lb 3.2 oz Weight 149 lb Weight 153 lb 12.8 oz Weight 155 lb Physical Exam 2 Narrative: GENERAL: The patient is alert and oriented times three. Not in any acute distress. HEENT: No significant pallor, icterus or lymphadenopathy.Oral cavity: There are no mucous membrane lesions. NECK: Trachea appears to be central. No masses noted. No JVD or thyromegaly appreciated. RESPIRATORY: Chest is symmetrical. No intercostals muscle retraction or any accessory muscle activation. There is no chest wall tenderness. Breath sounds are heard bilaterally. No rales or rhonchi heard. No evidence of any consolidation. BREASTS: Deferred. HEART: The heart sounds are normal. No S3 or S4. Short systolic murmur in the lower sternal border. No pericardial rub ABDOMEN: No vessel pulsations or distention. No tenderness. No organomegaly appreciated. Bowel sounds are normally heard. : Deferred. RECTAL: Deferred. LYMPHATIC: No lymphadenopathy noted in the neck. EXTREMITIES: No edema or cyanosis. No clubbing. The peripheral pulses are weak bilaterally-dorsalis pedis and posterior tibials MUSCULOSKELETAL: No acute joint deformities or swelling SKIN: There are no significant rashes or ecchymosis NEUROPSYCHIATRIC: The patient is alert and oriented x3. Appears to be in a good mood. No tremors or rigidity noted. Data 12/10/24 04:55 12/10/24 04:55 A&P Assessment and plan (1) NSTEMI (non-ST elevated myocardial infarction): Status post PCI of the OM and the diagonal branch. Currently seems to be stable. Continue on the Plavix and the aspirin along with the other medications. (2) Atherosclerotic heart disease of [place] coronary artery with unstable angina pectoris: This patient had a four-vessel coronary bypass surgery in 2017. He had a MOSLEY to LAD, venous graft to the RCA, diagonal and obtuse marginal arteries. Apparently he had occlusion of the venous graft to the RCA which was intervened? 3 months after the bypass. Details of the intervention a year ago is not available. Status post categorization. Occluded venous graft to the diagonal and to the obtuse marginal artery. Patent MOSLEY to the LAD. High-grade lesion in the venous graft to the RCA. Occluded distal LAD (3) Ischemic cardiomyopathy: I may start the patient on Entresto. Will discontinue the valsartan. Also started the patient on spironolactone and Jardiance. Discussed about LifeVest. Patient is agreeable. He may go ahead and order this. (4) Benign essential HTN: Currently normotensive. May continue on the current medication. (5) T2DM (type 2 diabetes mellitus): Continue to hold metformin for a total of 3 days (6) Dyslipidemia: May continue on the current medications. Plan Order the LifeVest today. Also started on Entresto 1 tablet p.o. twice daily Discontinue the valsartan Spironolactone 25 mg p.o. daily Encourage ambulation Possible discharge home tomorrow Arrange for staged procedure for the RCA graft lesion PDMP PDMP Reviewed: Not Reviewed Attestations 2 Medical Necessity Statement*: Patient requires continued hospital stay for close monitoring and further management Coding Level of Care Code Acute Code for Chg Fwd Diagnoses NSTEMI (non-ST elevated myocardial infarction) I21.4 Atherosclerosis of [place] coronary artery of [place] heart with unstable angina pectoris I25.110 [place] vs. transplanted heart: [place] heart Ischemic cardiomyopathy I25.5 Benign essential HTN I10 Type 2 diabetes mellitus without complication, without long-term current use of insulin E11.9 Diabetes mellitus complication status: without complication Diabetes mellitus penitentiary insulin use: without penitentiary use Dyslipidemia E78.5
[2024-12-09] MEDS: sucralfate 1 gm/10 mL Oral Liq UDC PO ×2 (09:28→20:29)
[2024-12-09] MEDS: aspirin 81 mg EC Tablet PO (09:28)
[2024-12-09] MEDS: carvedilol 3.125 mg Tablet PO ×2 (09:29→18:08)
[2024-12-09] MEDS: pantoprazole 40 mg SDV IVP ×2 (09:29→20:29)
[2024-12-09] MEDS: clopidogrel 75 mg Tablet PO (09:29)
--- NOTE | 2024-12-09 10:36 | PC.CHAP ---
Pastoral Care Encounter/Spiritual Assessment Type of Contact [] Declined angular js developer visit [] Patient/Family/Request visit [] Outpatient visit [] Follow-up visit [] Physician referral [] Code/Alert [x] Routine visit [] Staff referral [] Actively dying [] Patient sleeping [x] Family support [] [] Out of room [] Palliative care [] [] Receiving care in room [] Pre-surgical visit [] Trauma [] Long length of stay [] ICU visit [] Other: Relational/Emotional Strength [x] Patient feels connected with others/family/visitors/staff [] Distress [] Loneliness/isolation [] Abandonment Spirituality of Patient [x] Person of Anika [x] Attends Congregation of their Anika [x] Believes in Prayer [x] Reads Bible or Restoration materials [] There are Spiritual issues to be addressed Stave Block Splitter Interventions [x] Prayer [x] Active listening [x] Non-anxious presence [x] Spiritual/emotional support [] Crisis/trauma care [] Spiritual counseling [] Bereavement support [] Provided bereavement packet [] Provided Bible/devotional materials [] Provided toy/stuffed animal, coloring book to patient or family member [] Provided Communion [] Anointing/[place] [] Salvation [x] Completed spiritual assessment [] Other: Impact on Illness or Injury [] Angry [] Fearful [] Anxious [] Often cries [] Exhaustion [] Unable to work [] Unable to attend bahai [] Unable to walk/stand [] Unable to read [] Unable to drive [] Unable to eat/drink [] Unable to sleep [] Unable to be with family [] Patient intubated [] Other: Summary Time spent with patient 10 min
[2024-12-09] MEDS: sacubitril/valsartan 24-26 mg Tablet 1 EACH PO ×2 (11:12→18:08)
[2024-12-09 11:19] LABS: Glucose Point of Care 260 mg/dL (70-110)
[2024-12-09] MEDS: insulin lispro 100 unit/1 mL SUBCUT ×2 (12:00→18:08)
--- NOTE | 2024-12-09 13:59 | P.PN_ITS ---
Subjective 2 Subjective: Patient was seen this morning, denies any fevers, no chills, no cough, no chest pain, no palpitations Vitals/I&O/Wt Last Vital Signs Temp 98.1 F 12/09/24 11:44 Pulse 72 12/09/24 11:44 Resp 19 H 12/09/24 11:44 BP 133/68 12/09/24 11:44 Pulse Ox 98 12/09/24 11:44 O2 Del Method Room Air 12/09/24 11:44 12/08/24 12/09/24 12/09/24 22:59 06:59 14:59 Intake Total 780.583 / 1020.583 680 / 1700.583 480 / 480 Output Total 100 / 100 100 / 100 Balance 680.583 / 920.583 680 / 1600.583 380 / 380 Weight last 48 hrs Weight 68.583 kg Weight 67.585 kg Weight 69.763 kg Weight 70.307 kg Physical Exam 2 Const: COMMON NORMALS: no acute distress and patient oriented x3 Resp: COMMON NORMALS: normal respiratory effort, No retractions, No use of accessory muscles and clear to auscultation bilaterally AUSCULTATION: clear to auscultation bilaterally Cardio: COMMON NORMALS: regular rate, regular rhythm, S1 normal heart sound present and S2 normal heart sound present RATE: regular rate RHYTHM: r egular rhythm HEART SOUNDS: S1 normal heart sound present and S2 normal heart sound present GI: COMMON NORMALS: Normal to inspection, nondistended, normoactive bowel sounds present and non-tender Extremity: COMMON NORMALS: no pedal edema Neuro: COMMON NORMALS: patient oriented x3 Psych: COMMON NORMALS: mental status grossly normal Data 12/09/24 04:20 12/09/24 04:20 A&P Assessment and plan (1) NSTEMI (non-ST elevated myocardial infarction): (2) Chest pain: (3) Coronary artery disease: (4) Anemia: Plan Chest pain, NSTEMI - Troponin 530, delta 420.6 Cardiac echo CONCLUSIONS Multiple wall motion abnormalities with a diminished LV ejection fraction of 29%. Grade III/IV diastolic dysfunction (restrictive filling pattern), severely elevated filling pressures. Mildly dilated LV cavity. Moderately increased left atrial size. Thickened aortic valve. Trace tricuspid valve regurgitation. Estimated pulmonary artery peak systolic pressure 51 mmHg. Mild pulmonary valve regurgitation. There is no pericardial effusion. There are no intracardiac masses. No similar previous studies are available for comparison Status post cardiac cath Left main is patent. Ostial left circumflex artery to OM with critical 95% stenosis. Proximal LAD into diagonal artery has critical. Mid LAD is totally occluded. RCA has total chronic occlusion. MOSLEY to LAD is patent however post anastomosis there is a prior stent which is totally occluded. SVG to RCA has distal 70 to 80% stenosis. SVG to diagonal artery is 100% occluded. SVG to circumflex artery is totally occluded Status post successful revascularization of the [place] ostial circumflex artery to OM with 1 stent. Status post successful revascularization of proximal LAD into diagonal artery with 1 stent Plan -Aspirin, statin, Coreg, Plavix -Heparin drip discontinued, on DVT prophylaxis Lovenox - Plan on staged PCI of SVG to RCA - Will start Entresto today - Order LifeVest Type 2 diabetes, low-dose sliding scale Acute anemia with evidence of iron deficiency anemia, Protonix, Carafate, ferritin 346, iron, 38 Full code Lovenox for DVT prophylaxis PDMP PDMP Reviewed: Not Reviewed Attestations 2 Medical Necessity Statement*: Patient requires hospitalization for chest pain, NSTEMI, status post cardiac catheterization, stenting, ischemic cardiomyopathy Diagnoses NSTEMI (non-ST elevated myocardial infarction) I21.4 Chest pain R07.9 Coronary artery disease I25.10 Anemia D64.9
[2024-12-09 17:01] LABS: Glucose Point of Care 183 mg/dL (70-110)
[2024-12-09] MEDS: docusate sodium 100 mg Capsule PO (18:08)
[2024-12-09] MEDS: atorvastatin 40 mg Tablet 80 MG PO (20:29)
[2024-12-09 20:51] LABS: Glucose Point of Care 193 mg/dL (70-110)
[2024-12-10] VITALS: BP 114/53; PULSE 72; RESP 21; TEMP 36.8; O2SAT 96
[2024-12-10 04:00] VITALS: BP 117/56; PULSE 73; RESP 21; O2SAT 97
[2024-12-10 05:17] LABS: Basophils % 0.3 %; Eosinophils # 0.1 10^3/uL (0.0-0.8); Eosinophils % 1.6 %; Hematocrit 32.2 % (37-53); Lymphocytes # 1.7 10^3/uL (0.8-4.8); Lymphocytes % 22.4 %; Mean Corpuscular HGB Conc 31.1 g/dL (30-55); Mean Corpuscular Hemoglobin 18.7 pg (27-33); Mean Corpuscular Volume 60.1 fl (82-101); Monocytes # 0.9 10^3/uL (0.2-0.9); Neutrophils # 4.85 10^3/uL (1.8-7.7); Neutrophils % 63.3 %; Nucleated Red Blood Cells % 0 %; Platelet Count 216 10^3/cmm (157-399); Red Blood Count 5.36 10^6/uL (3.85-5.65); Red Cell Distribution Width 16.4 % (12.1-15.1); White Blood Count 7.65 10^3/uL (3.29-11.43)
[2024-12-10 05:36] LABS: Anion Gap 16.5 (5-19); Blood Urea Nitrogen 17 mg/dL (8-23); Carbon Dioxide 23 mmol/L (22-29); Chloride 103 mmol/L (98-107); Creatinine Clr Calc Pharmacy 74.0909; Glucose 169 mg/dL (65-115); Osmolality Calculated 293 mOsm/kg (285-295); Potassium 3.5 mmol/L (3.5-5.1); Sodium 139 mmol/L (136-145)
[2024-12-10 06:12] LABS: Glucose Point of Care 167 mg/dL (70-110)
[2024-12-10 08:00] VITALS: BP 117/56; PULSE 71; RESP 18; TEMP 36.7; O2SAT 96
[2024-12-10] MEDS: sucralfate 1 gm/10 mL Oral Liq UDC PO (08:43)
[2024-12-10] MEDS: clopidogrel 75 mg Tablet PO (08:43)
[2024-12-10] MEDS: sacubitril/valsartan 24-26 mg Tablet 1 EACH PO (08:43)
[2024-12-10] MEDS: carvedilol 3.125 mg Tablet PO (08:43)
[2024-12-10] MEDS: pantoprazole 40 mg SDV IVP (08:43)
[2024-12-10] MEDS: aspirin 81 mg EC Tablet PO (08:43)
[2024-12-10] MEDS: insulin lispro 100 unit/1 mL SUBCUT (08:44)
[2024-12-10] MEDS: docusate sodium 100 mg Capsule PO (08:44)
[2024-12-10 12:00] VITALS: BP 122/66; PULSE 70; RESP 18; TEMP 36.4; O2SAT 99
--- NOTE | 2024-12-10 12:18 | PM.PN ---
Subjective Subjective: Patient is feeling okay. No chest pain or chest tightness. No unusual shortness of breath. Vitals are stable. Tolerating the Entresto so far well He got the LifeVest today Medications: Medication Review Details: Current Medications Acetaminophen (Acetaminophen 325 Mg Tablet) 650 mg PO Q6H PRN PRN Reason: Mild/Mod Pain Or Temp >/= 101 Aspirin (Aspirin 81 Mg Ec Tablet) 81 mg PO DAILY [facility] Last Admin: 12/10/24 08:43 Dose: 81 mg Atorvastatin Calcium (Atorvastatin 40 Mg Tablet) 80 mg PO BEDTIME [facility] Last Admin: 12/09/24 20:29 Dose: 80 mg Carvedilol (Carvedilol 3.125 Mg Tablet) 3.125 mg PO BID [facility] Last Admin: 12/10/24 08:43 Dose: 3.125 mg Clopidogrel Bisulfate (Clopidogrel 75 Mg Tablet) 75 mg PO DAILY [facility] Last Admin: 12/10/24 08:43 Dose: 75 mg Denture Adhesive (Fixodent 39 Gm Tube) 1 applic DENTAL PRN PRN PRN Reason: denture adhesive Last Admin: 12/09/24 04:37 Dose: 1 applic Docusate Sodium (Docusate Sodium 100 Mg Capsule) 100 mg PO BID [facility] Last Admin: 12/10/24 08:44 Dose: 100 mg Enoxaparin Sodium (Enoxaparin 40 Mg/0.4 Ml Syringe) 40 mg SUBCUT Q24H [facility] Last Admin: 12/09/24 22:23 Dose: Not Given Glucagon (Glucagon 1 Mg/Ml Kit 1 Ml) 1 mg IM ONCE PRN; Protocol PRN Reason: Adult Acute Hypoglycemia Nursing Prot. Dextrose (D5w) 500 mls @ 0 mls/hr IV ONCE PRN; Protocol PRN Reason: Adult Acute Hypoglycemia Prot Dextrose (D10w) 125 mls @ 750 mls/hr IV PRN PRN; Protocol PRN Reason: Adult Acute Hypoglycemia Nursing Protocol Dextrose (D10w) 250 mls @ 1,000 mls/hr IV PRN PRN; Protocol PRN Reason: Adult Acute Hypoglycemia Nursing Protocol Insulin Human Lispro (Insulin Lispro 100 Unit/1 Ml) 0 unit SUBCUT TIDWM [facility]; Protocol Last Admin: 12/10/24 08:44 Dose: 2 unit Morphine Sulfate (Morphine 4 Mg/Ml Sdv 1 Ml) 2 mg IVP Q4H PRN PRN Reason: SEVERE PAIN Ondansetron HCl (Ondansetron 2 Mg/Ml Sdv 2 Ml) 4 mg IVP Q8H PRN PRN Reason: vomiting, or N/V if npo Pantoprazole Sodium (Pantoprazole 40 Mg Sdv) 40 mg IVP Q12H [facility] Last Admin: 12/10/24 08:43 Dose: 40 mg Sacubitril/Valsartan (Sacubitril/Valsartan 24-26 Mg Tablet) 1 each PO BID [facility] Last Admin: 12/10/24 08:43 Dose: 1 each Senna (Sennosides 8.6 Mg Tablet) 17.2 mg PO BEDTIME [facility] Last Admin: 12/09/24 20:18 Dose: Not Given Sucralfate (Sucralfate 1 Gm/10 Ml Oral Liq Udc) 1 gm PO Q12H [facility] Last Admin: 12/10/24 08:43 Dose: 1 gm Vitals/I&O/Wt Last Vital Signs Temp 97.6 F 12/10/24 12:00 Pulse 70 12/10/24 12:00 Resp 18 12/10/24 12:00 BP 122/66 12/10/24 12:00 Pulse Ox 99 12/10/24 12:00 O2 Del Method Room Air 12/10/24 12:00 12/09/24 12/10/24 12/10/24 22:59 06:59 14:59 Intake Total 820 / 1300 150 / 1450 240 / 240 Balance 820 / 1200 150 / 1350 240 / 240 Weight last 48 hrs Weight 159 lb 6.4 oz Weight 151 lb 3.2 oz Physical Exam Narrative: GENERAL: The patient is alert and oriented times three. Not in any acute distress. HEENT: No significant pallor, icterus or lymphadenopathy.Oral cavity: There are no mucous membrane lesions. NECK: Trachea appears to be central. No masses noted. No JVD or thyromegaly appreciated. RESPIRATORY: Chest is symmetrical. No intercostals muscle retraction or any accessory muscle activation. There is no chest wall tenderness. Breath sounds are heard bilaterally. No rales or rhonchi heard. No evidence of any consolidation. BREASTS: Deferred. HEART: The heart sounds are normal. No S3 or S4. Short systolic murmur in the lower sternal border. No pericardial rub ABDOMEN: No vessel pulsations or distention. No tenderness. No organomegaly appreciated. Bowel sounds are normally heard. : Deferred. RECTAL: Deferred. LYMPHATIC: No lymphadenopathy noted in the neck. EXTREMITIES: No edema or cyanosis. No clubbing. The peripheral pulses are weak bilaterally-dorsalis pedis and posterior tibials MUSCULOSKELETAL: No acute joint deformities or swelling SKIN: There are no significant rashes or ecchymosis NEUROPSYCHIATRIC: The patient is alert and oriented x3. Appears to be in a good mood. No tremors or rigidity noted. Data 12/10/24 04:55 12/10/24 04:55 Other Labs: Laboratory Last Values WBC 7.65 10^3/uL (3.29-11.43) 12/10/24 04:55 RBC 5.36 10^6/uL (3.85-5.65) 12/10/24 04:55 Hgb 10.00 g/dL (11.27-16.99) L 12/10/24 04:55 Hct 32.2 % (37-53) L 12/10/24 04:55 MCV 60.1 fl (82-101) L 12/10/24 04:55 MCH 18.7 pg (27-33) L 12/10/24 04:55 MCHC 31.1 g/dL (30-55) 12/10/24 04:55 RDW 16.4 % (12.1-15.1) H 12/10/24 04:55 Plt Count 216 10^3/cmm (157-399) 12/10/24 04:55 MPV 10.0 fL (7.4-10.4) 12/10/24 04:55 Neut % (Auto) 63.3 % 12/10/24 04:55 Lymph % (Auto) 22.4 % 12/10/24 04:55 Taylor % (Auto) 12.0 % 12/10/24 04:55 Eos % (Auto) 1.6 % 12/10/24 04:55 Baso % (Auto) 0.3 % 12/10/24 04:55 Neut # (Auto) 4.85 10^3/uL (1.8-7.7) 12/10/24 04:55 Lymph # (Auto) 1.7 10^3/uL (0.8-4.8) 12/10/24 04:55 Taylor # (Auto) 0.9 10^3/uL (0.2-0.9) 12/10/24 04:55 Eos # (Auto) 0.1 10^3/uL (0.0-0.8) 12/10/24 04:55 Baso # (Auto) 0.0 10^3/uL (0.0-0.1) 12/10/24 04:55 Nucleated RBC % (auto) 0 % 12/10/24 04:55 Nucleated RBCs # 0.0 /100WBC 12/10/24 04:55 APTT 35.9 SECONDS (23.9-36.7) D 12/08/24 16:41 Sodium 139 mmol/L (136-145) 12/10/24 04:55 Potassium 3.5 mmol/L (3.5-5.1) 12/10/24 04:55 Chloride 103 mmol/L (98-107) 12/10/24 04:55 Carbon Dioxide 23 mmol/L (22-29) 12/10/24 04:55 Anion Gap 16.5 (5-19) 12/10/24 04:55 BUN 17 mg/dL (8-23) 12/10/24 04:55 Creatinine 0.8 mg/dL (0.7-1.2) 12/10/24 04:55 GFR Calculation Not Reportable 12/10/24 04:55 Glucose 169 mg/dL (65-115) H 12/10/24 04:55 POC Glucose 167 mg/dL (70-110) H 12/10/24 05:45 Estimat Average Glucose 134 12/07/24 23:55 Hemoglobin A1c 6.3 % (4.0-6.0) H 12/07/24 23:55 Calculated Osmolality 293 mOsm/kg (285-295) 12/10/24 04:55 Calcium 9.0 mg/dL (8.5-10.5) 12/10/24 04:55 Phosphorus 2.9 mg/dL (2.5-4.5) 12/08/24 05:30 Magnesium 2.0 mg/dL (1.7-2.3) 12/08/24 05:30 Iron 38 ug/dL (59-158) L 12/08/24 05:30 TIBC 267 mcg/dl 12/08/24 05:30 % Saturation 14.2 % (20-50) L 12/08/24 05:30 Unsat Iron Binding 229 ug/dL (112-347) 12/08/24 05:30 Ferritin 346 ng/mL (30-400) 12/08/24 05:30 Total Bilirubin 0.4 mg/dL (0.15-1.2) 12/08/24 05:30 AST 57 U/L (0-40) H 12/08/24 05:30 ALT 15 U/L (0-41) 12/08/24 05:30 Alkaline Phosphatase 71 U/L (40-130) 12/08/24 05:30 Troponin T 5th Gen ng/L 530 ng/L (0-15) H* 12/08/24 08:58 Troponin T Baseline 20 ng/L (0-15) H 12/07/24 23:55 Troponin T 120 Minute 105.1 ng/L (0-15) H 12/08/24 02:04 Delta Troponin T 85.1 ABS# (0-10) H* 12/08/24 02:04 Troponin T Hi Sens 6Hr 440.7 ng/L (0-15) H 12/08/24 05:30 Troponin T Hi Sens 6Hr Delta 420.7 ng/L (0-12) H* 12/08/24 05:30 NT-Pro-B Natriuret Pep 1046 pg/mL (0-450) H 12/07/24 23:55 Total Protein 6.9 g/dL (6.6-8.7) 12/08/24 05:30 Albumin 4.3 g/dL (3.5-5.2) 12/08/24 05:30 Globulin 2.6 g/dL (1.3-4.6) 12/08/24 05:30 Triglycerides 99 mg/dL (0-150) 12/08/24 05:30 Cholesterol 106 mg/dL (0-200) 12/08/24 05:30 LDL Cholesterol, Calc 50 mg/dL (50-129) 12/08/24 05:30 HDL Cholesterol 36 mg/dL (60-100) L 12/08/24 05:30 LDL/HDL Ratio 1.39 RATIO (0.00-3.22) 12/08/24 05:30 Cholesterol/HDL Ratio 2.94 mg/dL (1.0-5.00) 12/08/24 05:30 A&P Assessment and plan (1) NSTEMI (non-ST elevated myocardial infarction): Status post PCI of the OM and the diagonal branch. Currently seems to be stable. Continue on the Plavix and the aspirin along with the other medications. Patient seems to be stable with no new symptoms (2) Atherosclerotic heart disease of [place] coronary artery with unstable angina pectoris: This patient had a four-vessel coronary bypass surgery in 2017. He had a MOSLEY to LAD, venous graft to the RCA, diagonal and obtuse marginal arteries. Apparently he had occlusion of the venous graft to the RCA which was intervened? 3 months after the bypass. Details of the intervention a year ago is not available. Status post categorization. Occluded venous graft to the diagonal and to the obtuse marginal artery. Patent MOSLEY to the LAD. High-grade lesion in the venous graft to the RCA. Occluded distal LAD. The intervention of the venous graft to the RCA to be done 3 to 4 weeks from now (3) Ischemic cardiomyopathy: I may start the patient on Entresto. Will discontinue the valsartan. Also started the patient on spironolactone and Jardiance. Discussed about LifeVest. Patient is agreeable. He may go ahead and order this. (4) Benign essential HTN: Currently normotensive. May continue on the current medication. (5) T2DM (type 2 diabetes mellitus): Continue to hold metformin for a total of 3 days (6) Dyslipidemia: May continue on the current medications. Plan If the patient remains stable, may be discharged home today. [facility]ointment [facility] in 1 week to be seen by the nurse practitioner Will titrate the Entresto to the maximum tolerated dose. Patient is wanting to have further cardiac follow-up with us. I may see him in the office in a month PDMP PDMP Reviewed: Not Reviewed Attestations Medical Necessity Statement*: Possible discharge home today Coding Level of Care Code Acute Code for [facility] Fw Diagnoses NSTEMI (non-ST elevated myocardial infarction) I21.4 Atherosclerosis of [place] coronary artery of [place] heart with unstable angina pectoris I25.110 [place] vs. transplanted heart: [place] heart Ischemic cardiomyopathy I25.5 Benign essential HTN I10 Type 2 diabetes mellitus without complication, without long-term current use of insulin E11.9 Diabetes mellitus terminal makeup operator insulin use: without snf use Diabetes mellitus complication status: without complication Dyslipidemia E78.5
[2024-12-10 12:19] LABS: Glucose Point of Care 167 mg/dL (70-110)
--- NOTE | 2024-12-10 12:32 | PM.DCS ---
Discharge Providers Date of Admission: 12/08/24 03:30 Date of Discharge: December 10, 2024 Attending Provider at Admission: Chata Lorenzo MD Attending Provider at Discharge: Jamal Werner MD Diagnoses at Discharge Discharge Diagnosis (1) NSTEMI (non-ST elevated myocardial infarction): Status: Acute (2) Atherosclerotic heart disease of [place] coronary artery with unstable angina pectoris: Status: Acute Qualifiers: [place] vs. transplanted heart: [place] heart Qualified Code(s): I25.110 - Atherosclerotic heart disease of [place] coronary artery with unstable angina pectoris (3) Ischemic cardiomyopathy: Status: Acute (4) Benign essential HTN: Status: Acute (5) T2DM (type 2 diabetes mellitus): Status: Acute Qualifiers: Diabetes mellitus complication status: without complication Diabetes mellitus senior living insulin use: without extermination supervisor use Qualified Code(s): E11.9 - Type 2 diabetes mellitus without complications (6) Dyslipidemia: Status: Acute Reason for Visit Reason for Visit: Chest Pains Hospital Course Hospital Course This is a 79-year-old male with past medical history of CAD, with CABG, type 2 diabetes mellitus who presents to [facility] for chest pain Patient was admitted to [facility] for chest pain, NSTEMI, Chest pain, NSTEMI - Troponin 530, delta 420.6 Cardiac echo CONCLUSIONS Multiple wall motion abnormalities with a diminished LV ejection fraction of 29%. Grade III/IV diastolic dysfunction (restrictive filling pattern), severely elevated filling pressures. Mildly dilated LV cavity. Moderately increased left atrial size. Thickened aortic valve. Trace tricuspid valve regurgitation. Estimated pulmonary artery peak systolic pressure 51 mmHg. Mild pulmonary valve regurgitation. There is no pericardial effusion. There are no intracardiac masses. No similar previous studies are available for comparison Status post cardiac cath Left main is patent. Ostial left circumflex artery to OM with critical 95% stenosis. Proximal LAD into diagonal artery has critical. Mid LAD is totally occluded. RCA has total chronic occlusion. [place] to LAD is patent however post anastomosis there is a prior stent which is totally occluded. SVG to RCA has distal 70 to 80% stenosis. SVG to diagonal artery is 100% occluded. SVG to circumflex artery is totally occluded Status post successful revascularization of the [place] ostial circumflex artery to OM with 1 stent. Status post successful revascularization of proximal LAD into diagonal artery with 1 stent - Patient was monitored as inpatient - Medically managed with aspirin, Plavix, beta-leonor, anticoagulant therapy - After stent placement, he was placed on Entresto and monitored for 24 hours - Overall clinically improved, no recurrent chest pain, will discharge on Entresto -Discharged with LifeVest in place, advised of compliance - I have asked him to hold ranolazine, Imdur due to soft blood pressures until he sees cardiology as outpatient - He should continue taking aspirin and Plavix as prescribed - In 3 to 4 weeks, he needs to have staged PCI to SVG to RCA - He has a follow-up with cardiology which he should continue to follow-up -If any recurrent chest pain go to emergency room - He was found to have anemia during his hospitalization with evidence of early iron deficiency - I have discharged him on Protonix, Carafate, iron tablets - His primary care provider should monitor his hemoglobin as outpatient -If he does develop any bloody or black stools, to immediately come to the emergency room - Discussed with him that he might require an EGD and colonoscopy in the next 3 to 4 weeks based on his clinical progress and plans on his staged PCI - For type 2 diabetes mellitus, continue metformin, follow-up with primary care provider about other interventions -please take aspirin and plavix as prescribed -if you have any chest pain go to emergency room -please wear life vest at all times -please have your primary care recheck hemoglobin in one week -if you continue to have anemia and low iron levels, please follow up with general surgery for EGD and colonoscopy -if you have shortness of breath or edema please see cardiology or primary care -Please monitor your blood sugars closely -Monitor your blood sugars 3 times daily as after meals -Please record your blood sugars, and a blood sugar log -If your blood sugar is greater than 500 go to the emergency room -If your blood sugar is less than 60 or at anytime you feel lightheaded or dizzy or diaphoretic or have chest palpitations check your blood sugar, and eat a hard candy or drink orange juice and go immediately to the emergency room -Remember hypoglycemia kills, so if his blood sugar is less than 60 we have to increase it by taking in a sugary meal such as a hard candy or orange juice and go to the emergency room -If you have any questions please call us where here to help Physical Exam Const: COMMON NORMALS: no acute distress and patient oriented x3 Resp: COMMON NORMALS: normal respiratory effort, No retractions, No use of accessory muscles and clear to auscultation bilaterally AUSCULTATION: clear to auscultation bilaterally Cardio: COMMON NORMALS: regular rate, regular rhythm, S1 normal heart sound present and S2 normal heart sound present RATE: regular rate RHYTHM: regular rhythm HEART SOUNDS: S1 normal heart sound present and S2 normal heart sound present GI: COMMON NORMALS: Normal to inspection, nondistended, normoactive bowel sounds present and non-tender Extremity: COMMON NORMALS: no pedal edema Neuro: COMMON NORMALS: patient oriented x3 Psych: COMMON NORMALS: mental status grossly normal Discharge Data Studies Completed and Pending Completed Studies During Hospitalization Category Date Time Status XR chest 1V portable [id number] Stat Exams 12/08/24 01:13 Completed CV. echo complete* [id number] Routine Ultrasound 12/08/24 03:53 Completed Pending at discharge Category Date Time Status TRIMMER LOADER request for service Routine Exams 12/08/24 10:06 Taken Basic Metabolic Panel AM LABS Lab 12/11/24 04:00 Ordered Complete Blood Count w/Auto AM LABS Lab 12/11/24 04:00 Ordered Occult Blood Stool [Immunochemical Fecal OCB] Routine Lab 12/08/24 10:31 Uncollected Radiology Impressions Chest X-Ray 12/08/24 01:13 IMPRESSION: No acute cardiopulmonary process. Laboratory Results WBC 7.65 10^3/uL (3.29-11.43) 12/10/24 04:55 RBC 5.36 10^6/uL (3.85-5.65) 12/10/24 04:55 Hgb 10.00 g/dL (11.27-16.99) L 12/10/24 04:55 Hct 32.2 % (37-53) L 12/10/24 04:55 MCV 60.1 fl (82-101) L 12/10/24 04:55 MCH 18.7 pg (27-33) L 12/10/24 04:55 MCHC 31.1 g/dL (30-55) 12/10/24 04:55 RDW 16.4 % (12.1-15.1) H 12/10/24 04:55 Plt Count 216 10^3/cmm (157-399) 12/10/24 04:55 MPV 10.0 fL (7.4-10.4) 12/10/24 04:55 Neut % (Auto) 63.3 % 12/10/24 04:55 Lymph % (Auto) 22.4 % 12/10/24 04:55 [place] % (Auto) 12.0 % 12/10/24 04:55 Eos % (Auto) 1.6 % 12/10/24 04:55 Baso % (Auto) 0.3 % 12/10/24 04:55 Neut # (Auto) 4.85 10^3/uL (1.8-7.7) 12/10/24 04:55 Lymph # (Auto) 1.7 10^3/uL (0.8-4.8) 12/10/24 04:55 [place] # (Auto) 0.9 10^3/uL (0.2-0.9) 12/10/24 04:55 Eos # (Auto) 0.1 10^3/uL (0.0-0.8) 12/10/24 04:55 Baso # (Auto) 0.0 10^3/uL (0.0-0.1) 12/10/24 04:55 Nucleated RBC % (auto) 0 % 12/10/24 04:55 Nucleated RBCs # 0.0 /100WBC 12/10/24 04:55 APTT 35.9 SECONDS (23.9-36.7) D 12/08/24 16:41 Sodium 139 mmol/L (136-145) 12/10/24 04:55 Potassium 3.5 mmol/L (3.5-5.1) 12/10/24 04:55 Chloride 103 mmol/L (98-107) 12/10/24 04:55 Carbon Dioxide 23 mmol/L (22-29) 12/10/24 04:55 Anion Gap 16.5 (5-19) 12/10/24 04:55 BUN 17 mg/dL (8-23) 12/10/24 04:55 Creatinine 0.8 mg/dL (0.7-1.2) 12/10/24 04:55 GFR Calculation Not Reportable 12/10/24 04:55 Glucose 169 mg/dL (65-115) H 12/10/24 04:55 POC Glucose 167 mg/dL (70-110) H 12/10/24 12:02 Estimat Average Glucose 134 12/07/24 23:55 Hemoglobin A1c 6.3 % (4.0-6.0) H 12/07/24 23:55 Calculated Osmolality 293 mOsm/kg (285-295) 12/10/24 04:55 Calcium 9.0 mg/dL (8.5-10.5) 12/10/24 04:55 Phosphorus 2.9 mg/dL (2.5-4.5) 12/08/24 05:30 Magnesium 2.0 mg/dL (1.7-2.3) 12/08/24 05:30 Iron 38 ug/dL (59-158) L 12/08/24 05:30 TIBC 267 mcg/dl 12/08/24 05:30 % Saturation 14.2 % (20-50) L 12/08/24 05:30 Unsat Iron Binding 229 ug/dL (112-347) 12/08/24 05:30 Ferritin 346 ng/mL (30-400) 12/08/24 05:30 Total Bilirubin 0.4 mg/dL (0.15-1.2) 12/08/24 05:30 AST 57 U/L (0-40) H 12/08/24 05:30 ALT 15 U/L (0-41) 12/08/24 05:30 Alkaline Phosphatase 71 U/L (40-130) 12/08/24 05:30 Troponin T 5th Gen ng/L 530 ng/L (0-15) H* 12/08/24 08:58 Troponin T Baseline 20 ng/L (0-15) H 12/07/24 23:55 Troponin T 120 Minute 105.1 ng/L (0-15) H 12/08/24 02:04 Delta Troponin T 85.1 ABS# (0-10) H* 12/08/24 02:04 Troponin T Hi Sens 6Hr 440.7 ng/L (0-15) H 12/08/24 05:30 Troponin T Hi Sens 6Hr Delta 420.7 ng/L (0-12) H* 12/08/24 05:30 NT-Pro-B Natriuret Pep 1046 pg/mL (0-450) H 12/07/24 23:55 Total Protein 6.9 g/dL (6.6-8.7) 12/08/24 05:30 Albumin 4.3 g/dL (3.5-5.2) 12/08/24 05:30 Globulin 2.6 g/dL (1.3-4.6) 12/08/24 05:30 Triglycerides 99 mg/dL (0-150) 12/08/24 05:30 Cholesterol 106 mg/dL (0-200) 12/08/24 05:30 LDL Cholesterol, Calc 50 mg/dL (50-129) 12/08/24 05:30 HDL Cholesterol 36 mg/dL (60-100) L 12/08/24 05:30 LDL/HDL Ratio 1.39 RATIO (0.00-3.22) 12/08/24 05:30 Cholesterol/HDL Ratio 2.94 mg/dL (1.0-5.00) 12/08/24 05:30 Vitals Last Vital Signs Temp 97.6 F 12/10/24 12:00 Pulse 70 12/10/24 12:00 Resp 18 12/10/24 12:00 BP 122/66 12/10/24 12:00 Pulse Ox 99 12/10/24 12:00 O2 Del Method Room Air 12/10/24 12:00 Discharge Plan Discharge Patient Disposition: Home Condition: Stable Prescriptions: New atorvastatin 40 mg Tablet 40 mg PO BEDTIME 30 Days Qty: 30 0RF carvedilol 3.125 mg Tablet 3.125 mg PO BID 30 Days Qty: 60 0RF Entresto 24-26 mg Tablet 1 tab PO BID 30 Days Qty: 60 0RF pantoprazole [Protonix] 40 mg tablet,delayed release (DR/EC) 40 mg PO BID 30 Days Qty: 60 0RF sucralfate [Carafate] 1 gram tablet 1 g PO BID 28 Days Qty: 56 0RF ferrous sulfate 325 mg (65 mg iron) tablet 325 mg PO BID 30 Days Qty: 60 0RF Continued ustekinumab [Stelara] 90 mg/mL Syringe See Rx Instructions .ROUTE .COMPLEX Rx Instructions: 90 mg subcutaneously, every 8 weeks potassium 99 mg Tablet 99 mg PO DAILY nitroglycerin 0.4 mg Tablet, Sublingual 0.4 mg SUBLINGUAL Q5M PRN (Reason: Chest Pain) Rx Instructions: do not exceed 3 doses per episode metformin 500 mg Tablet Extended Release 24 Hr 500 mg PO BID clopidogrel 75 mg Tablet 75 mg PO DAILY 30 Days Qty: 30 0RF aspirin 81 mg Tablet,Chewable 81 mg PO DAILY 30 Days Qty: 30 0RF Held isosorbide mononitrate 30 mg Tablet Extended Release 24 Hr 30 mg PO DAILY Hold Instructions: Resume on 12/22/24. hold until you see cardiology ranolazine 500 mg Tablet Extended Release 12 Hr 500 mg PO BID Hold Instructions: Resume on 12/22/24. hold until you see cardiology Discontinued carvedilol 12.5 mg Tablet 12.5 mg PO DAILY Rx Instructions: must administer with a meal/food valsartan 40 mg Tablet 20 mg PO DAILY carvedilol 6.25 mg Tablet 6.25 mg PO BEDTIME Rx Instructions: must administer with a meal/food simvastatin 20 mg Tablet 20 mg PO DAILY Discharge Orders: Discharge Order (Routine); Ordered 12/10/24 Ordered By: Jamal Werner Referrals: Vivian Laureano NP [Nurse Practitioner, Cardiology] - 12/17/24 1:30 pm Benjamin,VIRY Maria [Referring, Nurse Practitioner] - 12/18/24 12:00 pm Discharge Diet: Cardiac Discharge Activity: Resume usual activity Patient Instructions: Sucralfate (By mouth) (Carafate), Atorvastatin (By mouth) (Lipitor, Atorvaliq), Carvedilol (By mouth) (Coreg, Coreg CR, Hypertenevide-12.5), Pantoprazole (By mouth) (Protonix), Sacubitril/Valsartan (By mouth) (Entresto, Entresto Sprinkle), Chest Pain Stoplight, Post Angiogram Home Care Instructions Activity Restrictions/Additional Instructions: -please take aspirin and plavix as prescribed -if you have any chest pain go to emergency room -please wear life vest at all times -please have your primary care recheck hemoglobin in one week -if you continue to have anemia and low iron levels, please follow up with general surgery for EGD and colonoscopy -if you have shortness of breath or edema please see cardiology or primary care -Please monitor your blood sugars closely -Monitor your blood sugars 3 times daily as after meals -Please record your blood sugars, and a blood sugar log -If your blood sugar is greater than 500 go to the emergency room -If your blood sugar is less than 60 or at anytime you feel lightheaded or dizzy or diaphoretic or have chest palpitations check your blood sugar, and eat a hard candy or drink orange juice and go immediately to the emergency room -Remember hypoglycemia kills, so if his blood sugar is less than 60 we have to increase it by taking in a sugary meal such as a hard candy or orange juice and go to the emergency room -If you have any questions please call us where here to help Discharge Attestations Time Spent in Discharge Care*: greater than 30 min Quality Metrics Clinical Quality Measures [ No reported AMI, CVA or VTE this stay] Coding Level of Care Code 50373 Total time (in minutes) for Discharge: 45 Diagnoses NSTEMI (non-ST elevated myocardial infarction) I21.4 Atherosclerosis of [place] coronary artery of [place] heart with unstable angina pectoris I25.110 [place] vs. transplanted heart: [place] heart Ischemic cardiomyopathy I25.5 Benign essential HTN I10 Type 2 diabetes mellitus without complication, without long-term current use of insulin E11.9 Diabetes mellitus complication status: without complication Diabetes mellitus extermination supervisor insulin use: without extermination supervisor use Dyslipidemia E78.5
== END 2024-12-10 13:10 | disposition home or self-care (01) | DRG 322 ==
LOC: ER 12-08 01:42 → MEDSURG 12-08 03:01 → CSU 12-08 10:51
PROVIDERS: Internal Medicine; Internal Medicine Cardiovascular Disease; Admitting Provider Internal Medicine; Emergency Provider Emergency Medicine; Visit Provider Family Medicine
PROC: 027135Z Dilation of Coronary Artery, Two Arteries with Two Drug-eluting Intraluminal Devices, Percutaneous Approach (ICD-10-PCS; principal; 2024-12-08 11:00)
PROC: 027135Z Dilation of Coronary Artery, Two Arteries with Two Drug-eluting Intraluminal Devices, Percutaneous Approach (ICD-10-PCS; 2024-12-08 11:00)
DX: I21.A9 Other myocardial infarction type (principal); T82.897A Other specified complication of cardiac prosthetic devices, implants and grafts, initial encounter; Y82.9 Unspecified medical devices associated with adverse incidents; I25.10 Atherosclerotic heart disease of native coronary artery without angina pectoris; I25.5 Ischemic cardiomyopathy; I10 Essential (primary) hypertension; E11.9 Type 2 diabetes mellitus without complications; E78.5 Hyperlipidemia, unspecified; D50.9 Iron deficiency anemia, unspecified; Z95.1 Presence of aortocoronary bypass graft; Z95.5 Presence of coronary angioplasty implant and graft; Z79.82 Long term (current) use of aspirin; Z79.02 Long term (current) use of antithrombotics/antiplatelets; Z79.84 Long term (current) use of oral hypoglycemic drugs
CPT/HCPCS: 36415; 36416; 71045; 80048; 80053; 80061; 82728; 82962; 83036; 83540; 83550; 83735; 83880; 84100; 84484; 85025; 85347; 85730; 93005; 93306; 93455; 96372; 96374; 96376; 99152; 99153; 99285; C1725; C1760; C1769; C1874; C1887; C1894; C9600; C9601; J1200; J1644; J1815; J2250; J2470; J3010; J7030; J9999; Q9967

== ENCOUNTER → 2024-12-17 14:52 | Outpatient (BNVA) | payer MEDICARE, SELFPAY | PROVIDERS: PCP Nurse Practitioner Family; Visit Provider Nurse Practitioner Family | DX: I25.10 Atherosclerotic heart disease of native coronary artery without angina pectoris (principal) | CPT/HCPCS: 80053; 82550; 85025; 99214 ==

== ENCOUNTER 2025-01-14 08:50 | Outpatient (CLI) | payer MEDICARE, SELFPAY ==
[2025-01-14] VITALS (16 sets, daily range): BP systolic 106–139; BP diastolic 54–72; PULSE 60–78; RESP 12–18; TEMP 36.6–36.8; O2SAT 96–99; BMI 23.6
--- NOTE | 2025-01-14 09:00 | XACV_ITS ---
Exam Room: 2 Ht: 173 cm Wt: 70 kg BSA: 1.84 m2 Gender: Male : 1945 Any Known Allergies: No known allergies Exam Priority: Routine Procedure(s): Procedure Description: PCI procedure Procedure Description: Drug Eluting Coronary Stent Procedure Description: PTCA Procedure Description: Miscellaneous Procedure Description: ACT Diagnostic Cath Status: Elective Diagnostic Findings * INDICATION: Staged PCI of SVG to RCA. * SVG to RCA has severe distal 80% in-stent restenosis. * Other vessels not injected as this is staged PCI. For full diagnostic report, please refer to report from 12/08/2024. PCI Status: Elective PCI Indication: Staged PCI Interventional Findings * Procedure detail: We engaged SVG to RCA with JR4 guide catheter. Run-through wire was used to cross the stenosis. We predilated the stent with 3.0 x 8 mm semicompliant balloon. This was followed by placement of a 3.0 x 15 mm resolute [place] drug-eluting stent. We postdilated the stent with 3.25 x 12 mm NC balloon. At this time final angiogram was performed that showed excellent stent expansion and no residual stenosis. Guidewire and guide catheter were removed. Patient left the [facility] in stable condition.. Conclusions 1. Severe SVG to RCA stenosis s/p PCI with 1 stent. 2. Patient has prior CABG. Recommendations * Dual antiplatelet therapy with aspirin and plavix. * High intensity statin therapy. * Outpatient cardiology follow up in 2 weeks. Interventional RX Recommendation: PCI w/o planned CABG Diagnostic RX Recommendation: PCI w/o planned CABG Anticoagulation: Heparin Pressures Phase:Rest AO : 137 / 58 ( 88 ) @ 11:29:00 AM 91 / 42 ( 64 ) @ 11:36:00 AM Clinical Evaluation EBL: 5mL-10mL Procedural Details Pre-Procedure Time Out. Identified patient by full name and date of as verbalized by the patient/guarantor. Does the consent match the physician's order: Yes. Accurate & Complete Informed Consent: Yes. Inpatient/Outpatient History & Physical on Chart: Yes. If H&P is completed, is and addenduem needed: No; If yes, is the addendum complete: N/A. Visualize and Verify Site with Patient/Guarantor: N/A. Relevant Radiology Images available: Yes. Pre-op teaching completed and patient verbalized understanding. The risks, benefits, and alternatives of sedation and/or procedure were discussed by physician. The patient agrees to continue. Procedure started. Physician arrived. [facility] Clinical Fraility Score: 3: Managing Well. [facility] Indications: Stable Known CAD. Correct patient, site and procedure confirmed by cath team. Current diagnosis: Chest Pain. PERRLA. Strong, equal hand cutting supervisor bilaterally. Lungs clear x 5 lobes. IV Site on Arrival: 20 gauge in the right hand. IV Fluids: 0.9% NaCl at KVO. 0 mL infused prior to lab instructor. Pre Procedural Pulses: bilateral dorsalis pedis was 2+. Pre Procedural Pulses: bilateral posterior tibial was 1+. Pre Procedural Pulses: bilateral radial was 2+. Oxygen started at 2liters/min via nasal canula. bilateral groins was prepped with chloroprep then draped in the usual sterile fashion. Baseline sample Acquired. HR: 69 BPM. Physician scrubbed in. Immediate Pre-Procedure Time Out. Correct Patient: Yes; Correct Procedure: Yes; Correct Site: Yes; Correct Patient Position: Yes; Correct Supplies: Yes; Dried Flammable Prep: Yes; Blood Products Available: N/A;. Lidocaine 1% infiltrated to the right groin. Arterial access obtained with micropuncture set. Lidocaine 1% infiltrated to the right groin. 6 malay JR 4 guide catheter was inserted over the wire. Wire out. Glidewire inserted. Runthrough guidewire was advanced through the guide catheter to lesion in the distal RC SVGA. Inflation number : 1 A AB TREK 3.00X08 RX BALLOON was prepped and advanced across the Aorta Right -> Dist RCA , then inflated to 8 JONAS for 0:07 seconds. Inflation number: 2 The AB TREK 3.00X08 RX BALLOON was reinflated across the Aorta Right -> Dist RCA, to 8 JONAS for 0:12 seconds. Inflation number: 3 The AB TREK 3.00X08 RX BALLOON was reinflated across the Aorta Right -> Dist RCA, to 8 JONAS for 0:09 seconds. Balloon out. Results checked. Inflation Number : 4 A MDT R NNEKA 3.0X15 STUART -Lot Number# [id number] EXP: 07/24/2027 was prepped and advanced across the Aorta Right -> Dist RCA. The stent was deployed at 12 JONAS for 0:23 seconds. Stent balloon out over wire. Inflation number : 5 A MDT NC EUPHORA RX [id number] BALLOON was prepped and advanced across the Aorta Right -> Dist RCA , then inflated to 15 JONAS for 0:19 seconds. Inflation number: 6 The MDT NC EUPHORA RX [id number] BALLOON was reinflated across the Aorta Right -> Dist RCA, to 18 JONAS for 0:22 seconds. Balloon out. Results checked. Wire out. Results checked. ACT drawn. Results 396 seconds. Therapeutic limits - pre-heparin administration 90-150 seconds and monitoring heparin during a vascular procedure >250 seconds. Guide catheter out. A Right femoral angiogram was performed to determine safe placement of closure device. A Suture was successful obtaining hemostatsis at the Right Femoral artery insertion site. Arterial sheath flushed and connected to tranducer and pressure bag with heparinized saline. Post Procedure: Pulses reassessed and unchanged. PERRLA. Strong, equal hand cutting supervisor bilaterally. No VTE prophylaxis required. Vital chart was stopped. Medication's Wasted: Other = Fentanyl 50 mcg. Total IV fluids: 50 mL. Post-op diagnosis: Stent to the SVG to the RCA. Complications: None. Estimated blood loss: 5mL-10mL. Responsiveness - Normal response to verbal stimuli; alert and oriented, PERRLA. Airway - Unaffected, no intervention required; spontaneous ventilation. Circulation: W/N/L, pulses unchanged. Nausea/Vomiting: No. Procedure completed. Patient transferred by bed to 1st floor. Access Site Site: Right Femoral artery Sheath Size: 6 Fr Hemostasis Method: Suture Hemostasis Success: Successful Procedure Medications Start: 10:09 AM Stop: 10:09 AM Medication: Versed Amount: 1 mg Route: I.V. Start: 10:09 AM Stop: 10:09 AM Medication: Fentanyl Amount: 50 mcg Route: I.V. Start: 10:28 AM Stop: 10:28 AM Medication: Heparin Amount: 6000 units Route: I.V. Start: 10:29 AM Stop: 10:29 AM Medication: Versed Amount: 1 mg Route: I.V. I, the attending physician, have reviewed and verified all procedure medications. Yes, all medications given per verbal order History/Risk Factors Hypertension: Yes Dyslipidemia: Yes Peripheral Arterial Disease (PAD): No Myocardial Infarction (WI): Yes Obesity: No Renal Disease: No Prior Interventions PCI: Yes CABG: Yes Valve Surgery: No Date of PCI: 12/08/2024 Report Signatures Finalized by Theo Hauser MD on 01/14/2025 11:16 AM
[2025-01-14 09:27] LABS: Hematocrit 37.4 % (37-53); Hemoglobin 11.00 g/dL (11.27-16.99); Mean Corpuscular HGB Conc 29.4 g/dL (30-55); Mean Corpuscular Hemoglobin 18.4 pg (27-33); Mean Corpuscular Volume 62.4 fl (82-101); Nucleated Red Blood Cells % 0 %; Platelet Count 237 10^3/cmm (157-399); Red Blood Count 5.99 10^6/uL (3.85-5.65); White Blood Count 7.72 10^3/uL (3.29-11.43)
[2025-01-14 09:45] LABS: Anion Gap 18.2 (5-19); Blood Urea Nitrogen 17 mg/dL (8-23); Calcium 9.6 mg/dL (8.5-10.5); Carbon Dioxide 21 mmol/L (22-29); Chloride 103 mmol/L (98-107); Creatinine Clr Calc Pharmacy 73.2453; Glucose 118 mg/dL (65-115); Osmolality Calculated 289 mOsm/kg (285-295); Potassium 4.2 mmol/L (3.5-5.1); Sodium 138 mmol/L (136-145)
--- NOTE | 2025-01-14 10:14 | W.PM.OPSUD ---
Surgery/Procedure H&P Update DATE OF PROCEDURE: January 14, 2025 DATE H&P PERFORMED: 12/17/24 H&P UPDATE INFORMATION: I have reviewed H&P completed within last 30 days, I have examined patient prior to procedure and No changes to prior documentation PREOP DIAGNOSIS: Severe SVG to RCA stenosis PRIMARY INDICATION FOR PROCEDURE: Severe SVG to RCA stenosis PLANNED PROCEDURE: Operation Date: 01/14/25 10:00 Proposed Procedures p Percutaneous Coronary Intervention - Staged PCI(Not Applicable) - Theo Hauser M.D PATIENT REASSESSED PRIOR TO SEDATION, WITH NO CHANGE NOTED: Yes PHYSICAL EXAM: alert, oriented x 3, clear to auscultation bilaterally and regular rate & rhythm AIRWAY EVAL/ANESTHESIA PLAN: normal airway, ASA III, Local Anesthesia, Risks, benefits & alternatives of sedation and/or procedure discussed and Patient agrees to continue as planned ADDITIONAL INFORMATION: Moderate sedation
[2025-01-14 13:54] LABS: Partial Thromboplastin Time 77.2 SECONDS (23.9-36.7)
[2025-01-14 16:44] LABS: Partial Thromboplastin Time 29.6 SECONDS (23.9-36.7)
--- NOTE | 2025-01-14 18:35 | PC.NURSE ---
Patient's right femoral sheath is pulled at 1725. Hemostasisis obtained immediately. No hemotoma noted. Manual pressure is held for 20 minutes. Vitals remained stable throughout. A dressing of 4x4 and tegaderm is applied. Patient is reeducated that he still needs to remain in bed and not move his right leg or sit up more than 30 degrees for the next 6 hours. He is told that he will be able to get up at 2330. Patient states understanding.
[2025-01-15] VITALS: BP 137/68; PULSE 73; RESP 17; O2SAT 99
[2025-01-15 00:57] VITALS: BP 137/68; PULSE 65; RESP 13; TEMP 36.6; O2SAT 97
[2025-01-15 03:50] VITALS: BP 123/57; PULSE 70; RESP 16; TEMP 36.8; O2SAT 99
[2025-01-15 04:32] LABS: Hematocrit 33.2 % (37-53); Hemoglobin 9.90 g/dL (11.27-16.99); Mean Corpuscular HGB Conc 29.8 g/dL (30-55); Mean Corpuscular Hemoglobin 17.8 pg (27-33); Mean Corpuscular Volume 59.8 fl (82-101); Nucleated Red Blood Cells % 0 %; Platelet Count 196 10^3/cmm (157-399); Red Blood Count 5.55 10^6/uL (3.85-5.65); White Blood Count 6.33 10^3/uL (3.29-11.43)
[2025-01-15 04:51] LABS: Anion Gap 14.8 (5-19); Blood Urea Nitrogen 17 mg/dL (8-23); Calcium 8.9 mg/dL (8.5-10.5); Carbon Dioxide 23 mmol/L (22-29); Chloride 105 mmol/L (98-107); Creatinine Clr Calc Pharmacy 73.2453; Glucose 97 mg/dL (65-115); Osmolality Calculated 289 mOsm/kg (285-295); Potassium 3.8 mmol/L (3.5-5.1); Sodium 139 mmol/L (136-145)
[2025-01-15 07:36] VITALS: BP 134/67; PULSE 62; RESP 19; TEMP 36.5; O2SAT 98
--- NOTE | 2025-01-15 11:23 | PC.NURSE ---
Patients discharge is discussed with present. Patient states understanding and ambulated to private car with his .
--- NOTE | 2025-01-15 15:54 | P.DS_ITS ---
<Statement entered by Theo Hauser M.D - 01/16/25 12:23> Patient was cared for in conjunction with an advanced practice practitioner.? I reviewed the chart and all pertinent data including imaging, telemetry, and laboratory results.? I discussed the patient in detail with the advanced practice practitioner.? Please see?their note for discharge summary, testing results and agreed upon plan of care for the patient. Discharge Providers Date of Admission: 01/14/2025 Date of Discharge: January 15, 2025 Attending Provider at Admission: Theo Hauser M.D Attending Provider at Discharge: Theo Hauser M.D Primary Care Provider: SORAIDA Harkins Reason for Visit Reason for Visit: I25.10 Brief History: Patient is a 79-year-old male patient with past medical history of CAD status post CABG, type 2 diabetes, systolic CHF. He had an NSTEMI last month underwent coronary angiogram: Left main is patent. Ostial left circumflex artery to OM with critical 95% stenosis. Proximal LAD into diagonal artery has critical. Mid LAD is totally occluded. RCA has total chronic occlusion. [place] to LAD is patent however post anastomosis there is a prior stent which is totally occluded. SVG to RCA has distal 70 to 80% stenosis. SVG to diagonal artery is 100% occluded. SVG to circumflex artery is totally occluded. Status post succ essful revascularization of the [place] ostial circumflex artery to OM with 1 stent. Status post successful revascularization of proximal LAD into diagonal artery with 1 stent. Hospital Course Hospital Course He was brought back yesterday for staged PCI of the SVG to diagonal stenosis. He has done quite well overnight, sitting up in chair this morning. No complications with right femoral cath site. He has not any chest pain or shortness of breath. Blood pressure is well-controlled. Plan to discharge home today. He should continue to use LifeVest previously issued last month. Continue aspirin, Plavix, carvedilol, atorvastatin, Imdur, Entresto 24/26 mg 1 tablet twice a day. Follow-up in the cardiology clinic in 10 days. Depending on blood pressure and renal function, can uptitrate Entresto. Can resume metformin on Saturday. Physical Exam Const: COMMON NORMALS: no acute distress and patient oriented x3 GENERAL APPEARANCE: cooperative ORIENTATION/CONSCIOUSNESS: Yes awake, Yes oriented to person, Yes oriented to place and Yes oriented to time Chest: COMMONS NORMALS: normal inspection of the chest and normal palpation of entire chest wall CHEST: Yes Symmetrical chest wall rise Resp: COMMON NORMALS: normal respiratory effort, No retractions, No use of accessory muscles and clear to auscultation bilaterally AUSCULTATION: clear to auscultation bilaterally Cardio: COMMON NORMALS: regular rate, regular rhythm, S1 normal heart sound present, S2 normal heart sound present, No gallops present (Cardio), No clicks present (Cardio), No murmurs present (Cardio) and No rub (Cardio) RATE: regular rate RHYTHM: regular rhythm HEART SOUNDS: S1 normal heart sound present and S2 normal heart sound present PERIPHERAL PULSES: radial pulses present positive right 2+ and femoral pulses present positive right 2+ Neuro: COMMON NORMALS: patient oriented x3 and moves all extremities SENSORIUM/ORIENTATION: Yes oriented to person, Yes oriented to place and Yes oriented to time Skin: WOUNDS: Yes surgical site (no hematoma palpable) Details: no odor Discharge Data Studies Completed and Pending Completed Studies During Hospitalization Category Date Time Status A[employer]ICULT[employer] MECH[employer]IC request for service Routine Exams 01/14/25 09:00 Completed Laboratory Results WBC 6.33 10^3/uL (3.29-11.43) 01/15/25 04:13 RBC 5.55 10^6/uL (3.85-5.65) 01/15/25 04:13 Hgb 9.90 g/dL (11.27-16.99) L 01/15/25 04:13 Hct 33.2 % (37-53) L 01/15/25 04:13 MCV 59.8 fl (82-101) L 01/15/25 04:13 MCH 17.8 pg (27-33) L 01/15/25 04:13 MCHC 29.8 g/dL (30-55) L 01/15/25 04:13 RDW 15.7 % (12.1-15.1) H 01/15/25 04:13 Plt Count 196 10^3/cmm (157-399) 01/15/25 04:13 MPV 9.3 fL (7.4-10.4) 01/15/25 04:13 Neut % (Auto) 60.8 % 01/15/25 04:13 Lymph % (Auto) 28.0 % 01/15/25 04:13 Hitchcock % (Auto) 8.4 % 01/15/25 04:13 Eos % (Auto) 2.5 % 01/15/25 04:13 Baso % (Auto) 0.3 % 01/15/25 04:13 Neut # (Auto) 3.85 10^3/uL (1.8-7.7) 01/15/25 04:13 Lymph # (Auto) 1.8 10^3/uL (0.8-4.8) 01/15/25 04:13 Hitchcock # (Auto) 0.5 10^3/uL (0.2-0.9) 01/15/25 04:13 Eos # (Auto) 0.2 10^3/uL (0.0-0.8) 01/15/25 04:13 Baso # (Auto) 0.0 10^3/uL (0.0-0.1) 01/15/25 04:13 Nucleated RBC % (auto) 0 % 01/15/25 04:13 Nucleated RBCs # 0.0 /100WBC 01/15/25 04:13 APTT 29.6 SECONDS (23.9-36.7) D 01/14/25 16:12 Sodium 139 mmol/L (136-145) 01/15/25 04:13 Potassium 3.8 mmol/L (3.5-5.1) 01/15/25 04:13 Chloride 105 mmol/L (98-107) 01/15/25 04:13 Carbon Dioxide 23 mmol/L (22-29) 01/15/25 04:13 Anion Gap 14.8 (5-19) 01/15/25 04:13 BUN 17 mg/dL (8-23) 01/15/25 04:13 Creatinine 0.7 mg/dL (0.7-1.2) 01/15/25 04:13 GFR Calculation Not Reportable 01/15/25 04:13 Glucose 97 mg/dL (65-115) 01/15/25 04:13 POC Glucose 112 mg/dL (70-110) H 01/15/25 05:46 Calculated Osmolality 289 mOsm/kg (285-295) 01/15/25 04:13 Calcium 8.9 mg/dL (8.5-10.5) 01/15/25 04:13 Vitals Last Vital Signs Temp 97.7 F 01/15/25 07:36 Pulse 62 01/15/25 07:36 Resp 19 H 01/15/25 07:36 BP 134/67 01/15/25 07:36 Pulse Ox 98 01/15/25 07:36 O2 Del Method Room Air 01/15/25 07:36 Discharge Plan Discharge Patient Disposition: Home Prescriptions: Continued atorvastatin 40 mg tablet 40 mg PO BEDTIME Qty: 90 0RF carvedilol 3.125 mg tablet 3.125 mg PO BID Qty: 120 3RF clopidogrel 75 mg tablet 75 mg PO DAILY Qty: 90 3RF Entresto 24-26 mg tablet 1 tab PO BID Qty: 120 0RF sucralfate 1 gram tablet 1 g PO BID ustekinumab [Stelara] 90 mg/mL Syringe See Rx Instructions .ROUTE .COMPLEX Rx Instructions: 90 mg subcutaneously, every 8 weeks isosorbide mononitrate 30 mg Tablet Extended Release 24 Hr 30 mg PO DAILY potassium 99 mg Tablet 99 mg PO DAILY nitroglycerin 0.4 mg Tablet, Sublingual 0.4 mg SUBLINGUAL Q5M PRN (Reason: Chest Pain) Rx Instructions: do not exceed 3 doses per episode aspirin 81 mg Tablet,Chewable 81 mg PO DAILY 30 Days Qty: 30 0RF Held metformin 500 mg Tablet Extended Release 24 Hr 500 mg PO BID Hold Instructions: Resume on 01/17/25. Discharge Order = DC NOW: Discharge Order (Routine); Ordered 01/15/25 Ordered By: Mary Delgado Referrals: aMry Delgado FNP [Nurse Practitioner, Cardiology] - 01/25/25 1:30 pm Benjamin,VIRY Maria [Referring, Nurse Practitioner] - 01/25/25 12:00 pm Diet: Cardiac and Diabetic Activity: Increase activity as tolerated Patient Instructions: Coronary Angioplasty (DC), Post Angiogram Home Care Instructions Activity Restrictions/Additional Instructions: No lifting over 5 pounds for the next 4 days. Print Language: Moroccan Discharge Date/Time: 01/15/25 11:23 Discharge Attestations Time Spent in Discharge Care*: less than 30 min Quality Metrics Clinical Quality Measures [ No reported AMI, CVA or VTE this stay] Coding Level of Care Code Acute Code for Chg Cristal
== END 2025-01-15 11:23 | disposition home or self-care (01) ==
LOC: CCL 09:00 → CSU 11:09
PROVIDERS: Nurse Practitioner Family; PCP Nurse Practitioner Family; Visit Provider Internal Medicine
DX: T82.855A Stenosis of coronary artery stent, initial encounter (principal); I25.10 Atherosclerotic heart disease of native coronary artery without angina pectoris; Z95.1 Presence of aortocoronary bypass graft; Z95.5 Presence of coronary angioplasty implant and graft; E78.5 Hyperlipidemia, unspecified; I25.2 Old myocardial infarction; I50.23 Acute on chronic systolic (congestive) heart failure; I11.0 Hypertensive heart disease with heart failure; E11.9 Type 2 diabetes mellitus without complications; Z79.02 Long term (current) use of antithrombotics/antiplatelets; Z79.82 Long term (current) use of aspirin; Z79.84 Long term (current) use of oral hypoglycemic drugs
CPT/HCPCS: 36415; 36416; 80048; 82962; 85025; 85347; 85730; 93454; 99152; 99153; C1725; C1769; C1874; C1887; C1894; C9600; J0461; J1644; J2250; J3010; J7030; J9999; Q0163; Q9967

== ENCOUNTER 2025-01-25 13:30 | Outpatient (CLI) | payer MEDICARE, SELFPAY | END 2025-01-25 13:31 | LOC: RAD 01-27 08:08 | PROVIDERS: PCP Nurse Practitioner Family; Visit Provider Nurse Practitioner Family | DX: I25.10 Atherosclerotic heart disease of native coronary artery without angina pectoris (principal); I11.0 Hypertensive heart disease with heart failure; I50.23 Acute on chronic systolic (congestive) heart failure; E78.5 Hyperlipidemia, unspecified; Z79.82 Long term (current) use of aspirin; Z87.891 Personal history of nicotine dependence; I25.2 Old myocardial infarction | CPT/HCPCS: 99214 ==

== ENCOUNTER 2025-03-09 10:59 | Outpatient (CLI) | payer MEDICARE, SELFPAY ==
--- NOTE | 2025-03-09 11:15 | USCV_ITS ---
Too Joyner Age: 79 Gender: M : 1945 Exam Date: 03/09/2025 11:27 Ordering Phys: Vivian Laureano NP Technologist: Exam Location: [facility] [place] Indication: ef BP: 121 / 80 HR: Rhythm: Sinus Technical Quality: Adequate MEASUREMENTS (Male / Female) Normal Values 2D ECHO LV Diastolic Diameter PLAX 5.7 cm 4.2 - 5.9 / 3.9 - 5.3 cm IVS Diastolic Thickness 1.0 cm 0.6 - 1.0 / 0.6 - 0.9 cm IVS Systolic Thickness 1.2 cm LVPW Diastolic Thickness 0.9 cm 0.6 - 1.0 / 0.6 - 0.9 cm LVPW Systolic Thickness 1.3 cm LVOT Diameter 2.0 cm LV Ejection Fraction 2D Teich 42.2 % LV Ejection Fraction MOD 4C 45.6 % LV Ejection Fraction MOD 2C 50.9 % LV Ejection Fraction 2C AL 48.9 % LA Diameter 4.6 cm RA Systolic Volume 4C AL 59.2 ml RA Systolic Volume 4C MOD 59.2 ml Aorta at Sinotubular Diameter 3.0 cm IVC Diameter 1.8 cm M-MODE LA Ao Ratio MM 1.6 AV Cusp Separation MM 1.6 cm FINDINGS Left Ventricle Severe diffuse hypokinesis of the septum, anteroseptum, inferior wall and LV apex. LV ejection fraction around 35 to 40% (visual). Moderately dilated LV cavity Right Ventricle Normal RV size and ejection fraction Right Atrium Appears to be of normal size. Left Atrium Moderately increased left atrial size. Mitral Valve Thickened mitral valve. Aortic Valve Thickened aortic valve. Moderate aortic valve calcification. Tricuspid Valve No gross abnormalities noted Pulmonic Valve No gross abnormalities noted Pericardium No pericardial effusion. Aorta Normal aortic annulus size. IVC Normal inferior vena cava. CONCLUSIONS Severe diffuse hypokinesis of the septum, anteroseptum, inferior wall and LV apex. Moderately dilated LV cavity LV ejection fraction around 35 to 40% (visual). Moderately increased left atrial size. Thickened mitral valve. Thickened aortic valve. Moderate aortic valve calcification. There is no pericardial effusion. There are no intracardiac masses. Compared to the study from 12/08/2024, there is improvement in the LV ejection fraction-from 29% to 35-40% Dr Marcello Blanco MD FACC (Electronically Signed) Final Date: 13 March 2025 11:50 S
== END 2025-03-09 11:00 | disposition home or self-care (01) ==
LOC: RAD 11:00
PROVIDERS: PCP Nurse Practitioner Family; Visit Provider Nurse Practitioner Family
DX: I50.23 Acute on chronic systolic (congestive) heart failure (principal); I34.9 Nonrheumatic mitral valve disorder, unspecified; I70.0 Atherosclerosis of aorta; I35.8 Other nonrheumatic aortic valve disorders; I35.0 Nonrheumatic aortic (valve) stenosis
CPT/HCPCS: 93308

== ENCOUNTER → 2025-05-04 12:37 | Outpatient (BNVA) | payer MEDICARE, SELFPAY | PROVIDERS: PCP Nurse Practitioner Family; Visit Provider Internal Medicine | DX: I25.10 Atherosclerotic heart disease of native coronary artery without angina pectoris (principal); E78.5 Hyperlipidemia, unspecified; I11.0 Hypertensive heart disease with heart failure; I50.20 Unspecified systolic (congestive) heart failure; Z95.1 Presence of aortocoronary bypass graft; Z87.891 Personal history of nicotine dependence; I25.2 Old myocardial infarction | CPT/HCPCS: 99214 ==